=== PATIENT | female | born 1930 | race Caucasian/White ===

== ENCOUNTER → 2020-04-18 | Outpatient (CLI) | payer MEDICARE, MEDICAID ==
--- NOTE | 2020-04-20 13:08 | PATH ---
[address] [address] PATHOLOGY RPT PROCEDURE Name: DAPHNEHILDA Room: [facility] GUERDA Higgins#: [id number] Admission: 04/18/20 Date of : [birth year] Discharge: Report #: [id number] Path Case #: [id number] LCA Accession Number: [id number] . 01 Material submitted: . leg - BIOPSY TISSUE RIGHT LEG. Modifiers: right . 01 Clinical history: . Leg ulcer . 02 Diagnosis: Right leg biopsy: - Benign fibrovascular connective tissue with acute and chronic inflammation, scattered multinucleated foreign body type giant cells, fibrosis and stromal hemosiderin deposition typical of stasis dermatitis and predominantly inflammatory fibrinoid debris. (LINDSAY:birdie; 04/20/2020) QMS 04/20/2020 1051 Local . 02 Electronically signed: . Jorden Fraire MD, Pathologist NPI- [id number] . 01 Gross description: . The specimen is received in formalin, labeled "Daphne, Hilda, R leg biopsy" and consists of multiple fragments of pink-borja tissue material measuring 1.0 x 0.9 x 0.3 cm in aggregate which are entirely submitted in A1. (SDY; 04/19/2020) SYU/SYU 04/19/2020 1359 Local . 02 Pathologist provided ICD-10: L98.9, L90.5 . 02 CPT . 478592 Specimen Comment: A courtesy copy of this report has been sent to [phone] Specimen Comment: [phone] Specimen Comment: Report sent to / DR NGUYỄN Performed at: [address], [place] [id number] MD Jorje Huitron MD Phone: [phone] Performed at: [address] [address] [place], [place] [id number] MD Jorden Fraire MD Phone: [phone]
== END ==
LOC: M.WC 13:00
PROVIDERS: ATTEND Emergency Medicine Undersea and Hyperbaric Medicine
DX: I70.232 Atherosclerosis of native arteries of right leg with ulceration of calf (principal); L97.212 Non-pressure chronic ulcer of right calf with fat layer exposed; I89.0 Lymphedema, not elsewhere classified; I50.20 Unspecified systolic (congestive) heart failure; K21.9 Gastro-esophageal reflux disease without esophagitis; F41.9 Anxiety disorder, unspecified; Z95.0 Presence of cardiac pacemaker; Z79.82 Long term (current) use of aspirin

== ENCOUNTER 2020-05-01 17:29 | Inpatient (IN) | payer MEDICARE, MEDICAID ==
[~2020-05-01] VITALS: Ht 167.6 cm; Wt 61.1 kg
--- NOTE | ~2020-05-01 | PROC ---
[address] [address] PROCEDURE REPORT Name: DOMENICO PRASAD Room: [address] ADM IN M.R.#: [id number] Admission: 05/02/20 Attend Phys: Jimmie Collins MD Discharge: Date of : [birth year] Report #: [id number] THIS REPORT FOR: //name// cc: Jane Dukes Ahmad W. DO ~ THIS REPORT FOR: //name// For GI report, please see the Provation report in Perceptive 7 content. By: 0656Medical Records Staff ARUN /LAZARO
[2020-05-01 17:44] VITALS: BP 142/53
[2020-05-01] MEDS ORDERED: CRESTOR5 MG PO (18:04)
[2020-05-01] MEDS ORDERED: LISINOPRIL10 MG PO (18:04)
[2020-05-01] MEDS ORDERED: ASA81BEC PO (18:05)
[2020-05-01] MEDS ORDERED: DEMADEX20 MG PO (18:05)
[2020-05-01] MEDS ORDERED: SPIRONOLACTONE50 MG PO (18:06)
[2020-05-01] MEDS ORDERED: KLOR-CON 1010 MEQ PO (18:06)
[2020-05-01] MEDS ORDERED: UNICOMPLEX M TA1 TA1 PO (18:08)
[2020-05-01] MEDS ORDERED: NEURONTIN100 MG PO (18:08)
[2020-05-01] MEDS ORDERED: TEMAZEPAM30 MG PO (18:08)
[2020-05-01] MEDS ORDERED: VITAMIN D-40010 MCG PO (18:09)
[2020-05-01 18:16] LABS: BE -4.5 mmol/L (-2 to +3); PCO2 30.5 mmHg (35.0-45.0); PO2 94.2 mmHg (75.0-100.0); pH 7.412 (7.340-7.450)
[2020-05-01 18:29] LABS: URINE BILIRUBIN NEGATIVE (Negative); URINE BLOOD NEGATIVE (Negative); URINE CLARITY CLEAR; URINE COLOR YELLOW; URINE GLUCOSE-RANDOM NEGATIVE (Negative); URINE KETONES NEGATIVE (Negative); URINE LEUKOCYTES-REFLEX NEGATIVE (Negative); URINE NITRITE-REFLEX NEGATIVE (Negative); URINE PROTEIN NEGATIVE (Negative); URINE UROBILINOGEN 0.2 E.U./dl (0.2-1.0)
[2020-05-01 18:46] LABS: ABSOLUTE EOSINOPHILS 0.5 thou/uL (0.0-0.7); ABSOLUTE LYMPHOCYTES 1.7 thou/uL (0.8-5.3); ABSOLUTE MONOCYTES 0.6 thou/uL (0.0-1.2); ABSOLUTE NEUTROPHILS 3.7 thou/uL (1.6-8.1); BASOPHILS 0.6 %; EOSINOPHILS 7.7 %; HEMATOCRIT 37.2 % (37.0-47.0); HEMOGLOBIN 12.6 gm/dL (12.0-15.0); LYMPHOCYTES 25.8 %; MCH 32.8 pg (26.0-34.0); MCHC 33.9 g/dL (28.0-37.0); MCV 96.8 fL (80.0-100.0); MONOCYTES 8.6 %; MPV 10.2 fl. (7.2-11.1); NUCLEATED RBCS 0 /100WBC; PLATELET COUNT* 216 thou/uL (150-400); POLYS 57.3 %; RBC 3.84 mil/uL (4.20-5.00); RDW-CV 14.5 % (10.5-14.5); WBC 6.5 thou/uL (4.0-11.0)
[2020-05-01 19:06] LABS: CALCIUM 8.9 mg/dL (8.5-10.1); CREATININE 1.6 mg/dL (0.6-1.3); POTASSIUM 5.1 mmol/L (3.5-5.1)
[2020-05-01 19:11] LABS: ALBUMIN 3.4 g/dL (3.4-5.0); MAGNESIUM 2.2 mg/dL (1.8-2.4); TOTAL BILIRUBIN 0.5 mg/dL (<0.1-1.0); TOTAL PROTEIN 6.8 g/dL (6.4-8.2)
[2020-05-01 20:36] LABS: BE -3.1 mmol/L (-2 to +3); PCO2 VENOUS 43.2 mmHg (41.0-51.0); PO2 VENOUS 49.1 mmHg (35.0-45.0)
[2020-05-01 21:55] VITALS: BP 120/55
[2020-05-01 22:00] VITALS: BP 131/59
--- NOTE | 2020-05-02 04:50 | NUR ---
PATIENT ADMITTED TO UNIT AT 2200 BY ER IN STABLE CONDITION. ADMISSION ROUTINES IN PROGRESS. VITAL SIGNS STABLE. DRESSING RLE CLEAN AND DRY. DUE FOR CHANGE TODAY. PATIENT HAS INFLAMMATORY ARTHRITIS WITH EDEMA BOTH HANDS AND FEET. HEELS ELEVATED ON PILLOW. ORDERED MEDS AND FLUIDS PROVIDED ORDERED. NPO AT MIDNIGHT FOR GI CONSULT. NO STOOLS FROM ARRIVAL TO UNIT. SPECIAL ISOLATION FOR C. DIFF PENDING. HOURLY ROUNDS. REMAINS ALERT AND ORIENTED X 4. CONTINUE TO MONITOR.
[2020-05-02 08:43] VITALS: BP 120/65
--- NOTE | 2020-05-02 12:11 | NUR ---
CM spoke with Pt's DPOA, plan ARU at al. Cm updated occupational therapist rehab manager of pending referral. Dr to place consult. Therapies to be ordered.
[2020-05-02 16:00] VITALS: BP 126/67
--- NOTE | 2020-05-02 16:09 | EKG ---
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
--- NOTE | 2020-05-02 16:16 | NUR ---
PATIENT UP TO CHAIR WITH ASSISTANCE. EGD/COLON ORDERED FOR TOMORROW, NPO AFTER MIDNIGHT. GOLYTLEY PREP STARTED AT 1400 AND DUCOLAX GIVEN AT THIS TIME ORDERED. WOUND DRESSING CHANGED TO RIGHT CALF AND PHOTO OBTAINED PER ORDERS; WOUND CARE STILL TO SEE. IV SL PER CARDIOLOGY ORDERS. RECORDS OBTAINED AND CALLED TO Hector CORBIN NP. EKG RESULTS ALSO CALLED TO Mónica CORBIN NP.
--- NOTE | 2020-05-02 17:24 | NUR ---
CM COMPLETED INITIAL ASSESSMENT TO DISCUSS D/C PLANNING. PT LIVES IN [facility]. CM CONTACT CANDY THE ADMIN AND CONFIRM IT IS OKAY FOR PT TO RETURN TO FACILITY. PT HAS HX OF [facility] AND A SNF "IN [place] ABOUT THREE YEARS AGO." PT HAS W/C AND WALKER. PT HAS SUPPORTIVE NEICE. NO CHILDREN. PT RECEIVES ASSISTANCE W/ADLS AND MEALS AT [facility]. PT IS CURRENT W/[facility]. CM TO CONT TO FOLLOW PT.
[2020-05-02 21:15] VITALS: BP 143/65
--- NOTE | 2020-05-03 04:52 | NUR ---
PATIENT HAS REMAINED ALERT AND ORIENTED X 4 THROUGHOUT THE SHIFT AND RESTING QUIETLY ON HOURLY ROUNDS. BOWEL PREP FINISHED. BM'S NOW TRANSPARENT YELLOW. RIGHT AC IV INFILTRATED. NEW IV STARTED BY DATA GOVERNANCE ANALYST. NPO AT MIDNIGHT. VITAL SIGNS STABLE. CONTINUE TO MONITOR.
[2020-05-03 06:23] LABS: ABSOLUTE EOSINOPHILS 0.4 thou/uL (0.0-0.7); ABSOLUTE LYMPHOCYTES 1.8 thou/uL (0.8-5.3); ABSOLUTE MONOCYTES 0.6 thou/uL (0.0-1.2); ABSOLUTE NEUTROPHILS 3.4 thou/uL (1.6-8.1); BASOPHILS 0.7 %; EOSINOPHILS 6.2 %; HEMATOCRIT 35.5 % (37.0-47.0); HEMOGLOBIN 12.2 gm/dL (12.0-15.0); LYMPHOCYTES 28.3 %; MCH 33.1 pg (26.0-34.0); MCHC 34.2 g/dL (28.0-37.0); MCV 96.6 fL (80.0-100.0); MONOCYTES 9.7 %; MPV 10.7 fl. (7.2-11.1); NUCLEATED RBCS 0 /100WBC; PLATELET COUNT* 204 thou/uL (150-400); POLYS 55.1 %; RBC 3.67 mil/uL (4.20-5.00); RDW-CV 14.3 % (10.5-14.5); WBC 6.3 thou/uL (4.0-11.0)
[2020-05-03 06:34] LABS: CALCIUM 8.6 mg/dL (8.5-10.1); CREATININE 1.2 mg/dL (0.6-1.3); POTASSIUM 3.9 mmol/L (3.5-5.1)
[2020-05-03 08:05] VITALS: BP 169/49
[2020-05-03 16:00] VITALS: BP 122/58
--- NOTE | 2020-05-03 18:35 | NUR ---
PT A&OX4, VSS. PT NPO THIS AM PRIOR TO EGD/COLONOSCOPY. PT REMAINS ON PRECAUTIONS AWAITING C-DIFF RESULTS. PO VANC ADMINISTERED A DIRECTED. IV TO LFA SALINE LOCKED. NO REDNESS/SWELLING NOTED AT SITE. EDEMA NOTED TO BLE UPON ASSUMING CARE THIS AM. PT UP TO BSC W/WALKER. GAIT SLOW BUT STEADY. WOUND NOTED TO LATERAL ASPECT OF RLE. PT TO BE ENOURAGED TO WEAR BOOT TO PROTECT RLE AT TIMES OF REST. PT REQUESTS TEMAZAPAM TO BE SCHEDULED VS. PRN. PHYSICIAN PAGED. PT ON ROOM AIR, 100% SAT. PT LEFT UNIT APPROX 1130 AND RETURNED 1530. PT DIET ADVANCED TO HEART HEALTHY. PT DECLINED TRAY AND FAMILY PROVIDED FOOD FROM HOME REQUESTED BY PT. NURSING STAFF OFFERED PT SHOWER THIS AFTERNOON FOLLOWING PROCEDURE. PT DECLINED STATING SHE WAS WAITING FOR FAMILY TO BRING FOOD. REHAB TO BE CONSULTED FOR THIS PT. PT RESTS IN BED AT THIS TIME WITH CALL LIGHT IN REACH. WILL CONTINUE TO MONITOR.
[2020-05-03 21:00] VITALS: BP 103/60
[2020-05-04 06:13] LABS: ABSOLUTE EOSINOPHILS 0.2 thou/uL (0.0-0.7); ABSOLUTE LYMPHOCYTES 1.8 thou/uL (0.8-5.3); ABSOLUTE MONOCYTES 0.5 thou/uL (0.0-1.2); ABSOLUTE NEUTROPHILS 4.2 thou/uL (1.6-8.1); BASOPHILS 0.6 %; EOSINOPHILS 2.9 %; HEMATOCRIT 33.1 % (37.0-47.0); HEMOGLOBIN 11.4 gm/dL (12.0-15.0); LYMPHOCYTES 26.8 %; MCH 33.2 pg (26.0-34.0); MCHC 34.3 g/dL (28.0-37.0); MCV 96.6 fL (80.0-100.0); MPV 10.9 fl. (7.2-11.1); NUCLEATED RBCS 0 /100WBC; PLATELET COUNT* 188 thou/uL (150-400); POLYS 61.7 %; RBC 3.42 mil/uL (4.20-5.00); RDW-CV 14.4 % (10.5-14.5); WBC 6.7 thou/uL (4.0-11.0)
--- NOTE | 2020-05-04 06:27 | NUR ---
Alert and oriented x 4. She is up with mostly stand by assist to the bedside commode with walker. She did get temazepam at bedtime. Dressing to rt lower extremity in place with prafo boot in place. She has slept well.
[2020-05-04 06:32] LABS: ALBUMIN 2.7 g/dL (3.4-5.0); CALCIUM 8.2 mg/dL (8.5-10.1); CREATININE 1.3 mg/dL (0.6-1.3); POTASSIUM 3.8 mmol/L (3.5-5.1); TOTAL BILIRUBIN 0.6 mg/dL (<0.1-1.0); TOTAL PROTEIN 5.8 g/dL (6.4-8.2)
[2020-05-04 08:17] VITALS: BP 93/62
[2020-05-04 16:00] VITALS: BP 111/52
--- NOTE | 2020-05-04 16:13 | NUR ---
WOUND NURSE: PATIENT SEEN TO ADDRESS WOUND ON THE RIGHT LOWER LEG WHICH SEEMS ATYPICAL MEASURING 0.5 X 0.5 X 0.5 CM. BASE OF WOUND BED NOT OBSERVED AT TIME OF THIS ASSESSMENT BUT SUSPECT THIS WOUND MAY REACH UNDERLYING FASCIA. THERE IS NOT PERIWOUND REDNESS, WARMTH, OR INDURATION. THERE IS A SMALL AMOUNT OF SEROUSANGUINOUS DRAINAGE. PATIENT IS SEEN REGULARY BY DR. CLEARY IN [facility] AND WILL NEED FOLLOW UP APPT UPON DISCHRGE FROM HOSP. CLEANSED WITH WOUND CLEANSER, RINSED WITH SALINE, THEN PACKED WITH PURACHOL PLUS AG THEN COVERED WITH BORDERED FOAM DRESSING. APPLIED SINGLE LAYER SIZE E TUBIGRIP TO BLE TOES TO KNEE. PATIENT INSTRUCTED ON NEED FOR PROTEIN SUPPLEMENT AND TO INCREASE HER NUTRITIONAL INTAKE.
--- NOTE | 2020-05-04 17:05 | NUR ---
PATIENT HAD A GOOD DAY TODAY. SHE GOT UP TO THE SHOWER AND HAD HER HAIR WASHED AND LINENS CHANGED. SHE HAS NAPPED IN BED AND IS UP IN THE CHAIR NOW EATING SUPPER. NO COMPLAINTS OF PAIN TODAY BUT IS ABLE TO MAKE HER NEEDS KNOWN. CALL LIGHT IS IN EASY REACH. TAKES MEDICATIONS WHOLE WITHOUT DIFFICULTY. FEEDS HERSELF. NEEDS STAND BY ASSIST IF AMBULATING WITH HER WALKER..
[2020-05-04 21:02] VITALS: BP 112/55
--- NOTE | 2020-05-05 06:42 | NUR ---
PT A&OX4, ON ROOM AIR, PT UP WITH SB ASSIST, VSS. PT SLEEPING WELL. HOURLY ROUNDINGS COMPLETE. WILL CONTINUE TO MONITOR.
[2020-05-05 08:20] VITALS: BP 107/49
--- NOTE | 2020-05-05 11:23 | CON ---
[address] [address] CONSULTATION Name: SHANICEDOMENICO Room: [address] ADM IN M.R.#: [id number] Admission: 05/02/20 Attend Phys: Jimmie Collins MD Discharge: Date of : [birth year] Report #: [id number] THIS REPORT FOR: //name// cc: Jane Dukes Ahmad W. DO ~ THIS REPORT FOR: //name// CC: Jane Bass DICTATED BY: Geri Mckeon [facility] DATE OF SERVICE: 05/02/2020 Please note at the time of this dictation, the patient was seen and physically examined by myself. REASON FOR CONSULTATION: Diarrhea. HISTORY OF PRESENT ILLNESS: This is a 89-year-old female who was brought to the Emergency Room with increased weakness, change in bowel habits over the last several months and ongoing as she describes diarrhea that she can get off the toilet for. The patient states she has lost a little bit of weight and has not had much of an appetite. The patient was recently moved here from [place] to be closer to family since her sister recently passed earlier this summer. The patient states she has had colonoscopies done in the past; one of her first when she had, she had polyps. She has not had any more since then when her last one was done up in [place] many years ago. She states prior to change in her bowel habits, she states her bowels were soft and formed and they go once or twice a day. On occasion, she has noted some bright red blood with all this sitting on the toilet. She states she has no straining, but it just keeps coming out. She states she just feels like she cannot never get clean with wiping because that it is just so soft. ALLERGIES: PENICILLIN, SULFA AND CAMPHOR. MEDICATIONS: From home include Crestor, Zestril, Demadex, Klor-Con, spironolactone, multivitamin, temazepam, Neurontin, and vitamin D. PAST MEDICAL HISTORY: Hypertension, Geafaxr-Uqnpa-Allyh disease, mild chronic kidney disease, hyperlipidemia, peripheral vascular disease. PAST SURGICAL HISTORY: Pacemaker. FAMILY HISTORY: [place] [address] [facility] Room: [address] IN [facility].#: [id number] Admission: 05/02/20 Attend Phys: Jimmie Collins MD Discharge: Date of : [birth year] Report #: [id number] SOCIAL HISTORY: Denies any alcohol, tobacco or illegal drug use. REVIEW OF SYSTEMS: Twelve-point review of systems is essentially negative except what is mentioned in the HPI. PHYSICAL EXAMINATION: VITAL SIGNS: Temperature 36.1, pulse 73, respirations 18, blood pressure 131/59. HEART: Regular rate and rhythm. LUNGS: Clear. ABDOMEN: Soft, positive bowel sounds in all 4 quadrants with no masses or tenderness noted. LABORATORY DATA: Hemoglobin 12.6, white count 6.5, platelets 216. BUN is 47, creatinine 1.6. GFR is 30. LFTs are completely normal. Chest x-ray was normal. IMPRESSION: 1. Diarrhea. 2. History of colon polyps. 3. Change in bowel habits over the last several months. 4. Family history of breast cancer. PLAN: 1. Colonoscopy tomorrow with Dr. Ramos. 2. Clear liquids today, n.p.o. after midnight. 3. We will obtain a Cardiology consult given her history of a pacemaker for clearance for procedure tomorrow. 4. Further recommendations to be made after Dr. Ramos who sees the patient later today. Thank you for allowing us to participate in this patient's care. Please do not hesitate to call with any questions in regard to this consult. Agree with above assessment and plan by Geri Mckeon. <ELECTRONICALLY SIGNED> By: Fran Ramos MD 05/05/20 1123 0945 1019Fran Ramos MD /nt
[2020-05-05] MEDS ORDERED: COLESTID1 GM PO (11:40)
[2020-05-05] MEDS ORDERED: BENTYL 20 MG TA20 M1 PO (11:40)
[2020-05-05] MEDS ORDERED: FLAGYL500 M1 PO (11:40)
[2020-05-05 13:31] VITALS: BP 107/49
--- NOTE | 2020-05-05 16:24 | NUR ---
PATIENT DISCHARGED TO INPATIENT REHAB. REPORT GIVEN TO LAMIN LAWSON. BELONGINGS PACKED AND TRANSPORTED TO ROOM 333. PATIENT TAKEN BY WHEELCHAIR TO ROOM 333. IV REMOVED.
== END 2020-05-05 16:15 | DRG 371 ==
LOC: M.ERS 17:29 → M.TBA-ER 18:33 → M.ORTHSURG 18:33
PROVIDERS: Emergency Medicine; Personal Emergency Response Attendant; ADMIT Internal Medicine; ATTEND Internal Medicine
PROC: 0DB68ZX Excision of Stomach, Via Natural or Artificial Opening Endoscopic, Diagnostic (ICD-10-PCS; principal; 2020-05-03)
PROC: 0D758ZZ Dilation of Esophagus, Via Natural or Artificial Opening Endoscopic (ICD-10-PCS; principal; 2020-05-03)
PROC: 0DBK8ZZ Excision of Ascending Colon, Via Natural or Artificial Opening Endoscopic (ICD-10-PCS; principal; 2020-05-03)
PROC: 0DBL8ZZ Excision of Transverse Colon, Via Natural or Artificial Opening Endoscopic (ICD-10-PCS; principal; 2020-05-03)
PROC: 0DBE8ZX Excision of Large Intestine, Via Natural or Artificial Opening Endoscopic, Diagnostic (ICD-10-PCS; principal; 2020-05-03)
DX: A04.9 Bacterial intestinal infection, unspecified (principal); N17.0 Acute kidney failure with tubular necrosis; I42.8 Other cardiomyopathies; E44.0 Moderate protein-calorie malnutrition; I13.0 Hypertensive heart and chronic kidney disease with heart failure and stage 1 through stage 4 chronic kidney disease, or unspecified chronic kidney disease; K29.70 Gastritis, unspecified, without bleeding; K57.30 Diverticulosis of large intestine without perforation or abscess without bleeding; N18.9 Chronic kidney disease, unspecified; E78.5 Hyperlipidemia, unspecified; E11.51 Type 2 diabetes mellitus with diabetic peripheral angiopathy without gangrene; M19.042 Primary osteoarthritis, left hand; M19.041 Primary osteoarthritis, right hand; K52.9 Noninfective gastroenteritis and colitis, unspecified; I50.9 Heart failure, unspecified; E86.0 Dehydration; E11.22 Type 2 diabetes mellitus with diabetic chronic kidney disease; I48.91 Unspecified atrial fibrillation; K22.2 Esophageal obstruction; K44.9 Diaphragmatic hernia without obstruction or gangrene; Z20.828 Contact with and (suspected) exposure to other viral communicable diseases; Z95.0 Presence of cardiac pacemaker; Z88.0 Allergy status to penicillin; Z88.2 Allergy status to sulfonamides; Z88.8 Allergy status to other drugs, medicaments and biological substances; Z80.3 Family history of malignant neoplasm of breast; Z86.010 Personal history of colon polyps; Z68.21 Body mass index [BMI] 21.0-21.9, adult; Z79.899 Other long term (current) drug therapy

== ENCOUNTER 2020-05-05 13:44 | Inpatient (IN) | payer MEDICARE, MEDICAID ==
[~2020-05-05] VITALS: Ht 167.6 cm; Wt 59.0 kg
[~2020-05-05 13:44] MED LIST: ASA81BEC PO; BENTYL 20 MG TA20 M1 PO; COLESTID1 GM PO; CRESTOR5 MG PO; DEMADEX20 MG PO; FLAGYL500 M1 PO; KLOR-CON 1010 MEQ PO; LISINOPRIL10 MG PO; NEURONTIN100 MG PO; SPIRONOLACTONE50 MG PO; TEMAZEPAM30 MG PO; UNICOMPLEX M TA1 TA1 PO; VITAMIN D-40010 MCG PO
[2020-05-05 20:15] VITALS: BP 111/59
[2020-05-06 08:30] VITALS: BP 128/62
[2020-05-06 09:11] LABS: ABSOLUTE EOSINOPHILS 0.4 thou/uL (0.0-0.7); ABSOLUTE MONOCYTES 0.6 thou/uL (0.0-1.2); ABSOLUTE NEUTROPHILS 4.5 thou/uL (1.6-8.1); BASOPHILS 0.6 %; HEMATOCRIT 37.6 % (37.0-47.0); HEMOGLOBIN 12.9 gm/dL (12.0-15.0); LYMPHOCYTES 26.3 %; MCH 32.6 pg (26.0-34.0); MCHC 34.3 g/dL (28.0-37.0); MCV 95.1 fL (80.0-100.0); MPV 10.1 fl. (7.2-11.1); NUCLEATED RBCS 0 /100WBC; PLATELET COUNT* 205 thou/uL (150-400); POLYS 60.1 %; RBC 3.96 mil/uL (4.20-5.00); RDW-CV 14.5 % (10.5-14.5); WBC 7.4 thou/uL (4.0-11.0)
[2020-05-06 09:21] LABS: CALCIUM 9.2 mg/dL (8.5-10.1); CREATININE 1.4 mg/dL (0.6-1.3); POTASSIUM 3.8 mmol/L (3.5-5.1)
[2020-05-06 20:00] VITALS: BP 112/59
[2020-05-07 08:00] VITALS: BP 131/50
[2020-05-07 21:00] VITALS: BP 99/48
[2020-05-08 07:30] VITALS: BP 124/52
[2020-05-08 20:00] VITALS: BP 107/44
[2020-05-09 08:00] VITALS: BP 128/52
[2020-05-09 19:00] VITALS: BP 107/50
[2020-05-10 04:39] LABS: CALCIUM 8.4 mg/dL (8.5-10.1); CREATININE 1.5 mg/dL (0.6-1.3); POTASSIUM 4.6 mmol/L (3.5-5.1)
[2020-05-10 07:00] VITALS: BP 124/53
[2020-05-10 20:00] VITALS: BP 98/42
[2020-05-11 08:17] VITALS: BP 107/54
[2020-05-11 20:25] VITALS: BP 121/52
[2020-05-11 20:30] VITALS: BP 104/59
[2020-05-12 08:02] VITALS: BP 114/47
[2020-05-12 20:00] VITALS: BP 104/59
[2020-05-13 05:56] VITALS: BP 118/59
[2020-05-13 08:00] VITALS: BP 127/63
[2020-05-13 20:26] VITALS: BP 121/55
[2020-05-14 08:00] VITALS: BP 122/59
[2020-05-14 19:00] VITALS: BP 104/47
[2020-05-15 07:00] VITALS: BP 129/61
[2020-05-15 20:00] VITALS: BP 104/66
[2020-05-16 08:49] VITALS: BP 139/70
[2020-05-16 19:00] VITALS: BP 98/46
[2020-05-17 08:48] VITALS: BP 126/62
[2020-05-17 20:29] VITALS: BP 115/49
[2020-05-18 08:00] VITALS: BP 133/54
[2020-05-18] MEDS ORDERED: BUDESONIDE EC3 MG PO ×2 (09:13→09:16)
[2020-05-18] MEDS ORDERED: ALTACE5 MG PO (09:13)
[2020-05-18] MEDS ORDERED: COLESTID1 GM PO (09:13)
[2020-05-18] MEDS ORDERED: BENTYL 20 MG TA20 M1 PO ×2 (09:13→09:16)
[2020-05-18 16:08] VITALS: BP 133/54
[2020-05-18 20:30] VITALS: BP 111/50
[2020-05-19 07:00] VITALS: BP 122/59
[2020-05-19 11:45] VITALS: BP 133/54
[2020-05-19 12:31] VITALS: BP 133/54
[2020-05-19 16:06] VITALS: BP 133/54
== END 2020-05-19 16:05 | disposition home health service (06) | DRG 948 ==
LOC: M.REH 13:44
PROVIDERS: Internal Medicine; ADMIT Physical Medicine & Rehabilitation; ATTEND Physical Medicine & Rehabilitation
DX: R53.81 Other malaise (principal); I48.91 Unspecified atrial fibrillation; K52.9 Noninfective gastroenteritis and colitis, unspecified; G60.0 Hereditary motor and sensory neuropathy; I12.9 Hypertensive chronic kidney disease with stage 1 through stage 4 chronic kidney disease, or unspecified chronic kidney disease; N18.3 Chronic kidney disease, stage 3 (moderate); K52.831 Collagenous colitis; Z88.0 Allergy status to penicillin; Z88.2 Allergy status to sulfonamides; Z95.810 Presence of automatic (implantable) cardiac defibrillator; Z86.718 Personal history of other venous thrombosis and embolism; Z79.899 Other long term (current) drug therapy

== ENCOUNTER → 2020-05-30 | Outpatient (CLI) | payer MEDICARE, MEDICAID ==
[~2020-05-30] MED LIST changes: +ALTACE5 MG PO; +BUDESONIDE EC3 MG PO
== END ==
LOC: M.WC 04:07
PROVIDERS: ATTEND Emergency Medicine Undersea and Hyperbaric Medicine
DX: I70.232 Atherosclerosis of native arteries of right leg with ulceration of calf (principal); L97.212 Non-pressure chronic ulcer of right calf with fat layer exposed; S80.11XA Contusion of right lower leg, initial encounter; I89.0 Lymphedema, not elsewhere classified; I50.20 Unspecified systolic (congestive) heart failure; K21.9 Gastro-esophageal reflux disease without esophagitis; F41.9 Anxiety disorder, unspecified; Z95.0 Presence of cardiac pacemaker; X58.XXXA Exposure to other specified factors, initial encounter; Y93.89 Activity, other specified; Y92.89 Other specified places as the place of occurrence of the external cause; Y99.8 Other external cause status

== ENCOUNTER 2020-06-02 08:00 | Inpatient (IN) | payer MEDICARE, MEDICAID ==
[~2020-06-02] VITALS: Ht 167.6 cm; Wt 55.8 kg
[2020-06-02 08:03] VITALS: BP 126/76
[2020-06-02 08:32] LABS: ABSOLUTE EOSINOPHILS 0.1 thou/uL (0.0-0.7); ABSOLUTE LYMPHOCYTES 1.7 thou/uL (0.8-5.3); ABSOLUTE MONOCYTES 0.7 thou/uL (0.0-1.2); ABSOLUTE NEUTROPHILS 7.6 thou/uL (1.6-8.1); BASOPHILS 0.4 %; EOSINOPHILS 1.2 %; HEMOGLOBIN 12.6 gm/dL (12.0-15.0); LYMPHOCYTES 16.5 %; MCH 33.3 pg (26.0-34.0); MCV 97.9 fL (80.0-100.0); MONOCYTES 7.3 %; MPV 9.6 fl. (7.2-11.1); NUCLEATED RBCS 0 /100WBC; PLATELET COUNT* 208 thou/uL (150-400); POLYS 74.6 %; RBC 3.78 mil/uL (4.20-5.00); RDW-CV 15.5 % (10.5-14.5); WBC 10.2 thou/uL (4.0-11.0)
[2020-06-02 08:40] LABS: CALCIUM 8.6 mg/dL (8.5-10.1); CREATININE 1.6 mg/dL (0.6-1.3); POTASSIUM 4.7 mmol/L (3.5-5.1)
[2020-06-02 08:41] LABS: APTT 22.1 Seconds (25.0-31.3); PROTIME 10.6 Seconds (9.20-11.50)
[2020-06-02 08:52] LABS: ALBUMIN 3.4 g/dL (3.4-5.0); TOTAL BILIRUBIN 0.6 mg/dL (<0.1-1.0); TOTAL PROTEIN 6.8 g/dL (6.4-8.2)
[2020-06-02 09:38] LABS: URINE BILIRUBIN NEGATIVE (Negative); URINE BLOOD NEGATIVE (Negative); URINE CLARITY CLEAR; URINE COLOR YELLOW; URINE GLUCOSE-RANDOM NEGATIVE (Negative); URINE KETONES NEGATIVE (Negative); URINE LEUKOCYTES-REFLEX NEGATIVE (Negative); URINE NITRITE-REFLEX NEGATIVE (Negative); URINE PROTEIN NEGATIVE (Negative); URINE UROBILINOGEN 0.2 E.U./dl (0.2-1.0)
--- NOTE | 2020-06-02 10:33 | EKG ---
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[employer]: [facility] : 1930 Requested By: Arcenio Ray Order Number: [id number] MD: Steve Reyna Measurements Intervals [place] Rate: 70 P: 0 LA: 36 QRS: 251 QRSD: 108 T: 77 QT: 414 QTc: 447 Interpretive Statements Ventricular-paced rhythm No further analysis attempted due to paced rhythm Compared to ECG 05/02/2020 14:20:03 No significant change Electronically Signed On 06-02-2020 10:33:20 CDT by Steve Reyna [email or web address] <ELECTRONICALLY SIGNED> By: Steve Reyna MD, [facility] 06/02/20 1033 2 2 Steve Reyna MD, [facility] /EPI
[2020-06-02 11:38] VITALS: BP 130/64
[2020-06-02 12:00] VITALS: BP 150/75
[2020-06-02 16:00] VITALS: BP 90/42
[2020-06-03 04:46] LABS: ABSOLUTE EOSINOPHILS 0.1 thou/uL (0.0-0.7); ABSOLUTE LYMPHOCYTES 1.4 thou/uL (0.8-5.3); ABSOLUTE MONOCYTES 0.5 thou/uL (0.0-1.2); ABSOLUTE NEUTROPHILS 4.9 thou/uL (1.6-8.1); BASOPHILS 0.7 %; EOSINOPHILS 1.5 %; HEMATOCRIT 32.6 % (37.0-47.0); HEMOGLOBIN 11.2 gm/dL (12.0-15.0); LYMPHOCYTES 19.7 %; MCH 33.8 pg (26.0-34.0); MCHC 34.4 g/dL (28.0-37.0); MCV 98.3 fL (80.0-100.0); MONOCYTES 7.8 %; MPV 9.6 fl. (7.2-11.1); NUCLEATED RBCS 0 /100WBC; PLATELET COUNT* 165 thou/uL (150-400); POLYS 70.3 %; RBC 3.31 mil/uL (4.20-5.00); RDW-CV 15.1 % (10.5-14.5); WBC 6.9 thou/uL (4.0-11.0)
[2020-06-03 05:52] LABS: CREATININE 1.3 mg/dL (0.6-1.3); POTASSIUM 5.6 mmol/L (3.5-5.1)
[2020-06-03 07:40] VITALS: BP 110/46
[2020-06-03 19:50] VITALS: BP 114/61
[2020-06-04 04:31] LABS: ABSOLUTE EOSINOPHILS 0.2 thou/uL (0.0-0.7); ABSOLUTE LYMPHOCYTES 2.3 thou/uL (0.8-5.3); ABSOLUTE MONOCYTES 0.7 thou/uL (0.0-1.2); ABSOLUTE NEUTROPHILS 5.7 thou/uL (1.6-8.1); BASOPHILS 0.3 %; EOSINOPHILS 1.7 %; HEMATOCRIT 37.9 % (37.0-47.0); HEMOGLOBIN 12.9 gm/dL (12.0-15.0); LYMPHOCYTES 25.5 %; MCH 33.4 pg (26.0-34.0); MCHC 33.9 g/dL (28.0-37.0); MCV 98.5 fL (80.0-100.0); MONOCYTES 8.1 %; MPV 10.2 fl. (7.2-11.1); NUCLEATED RBCS 0 /100WBC; PLATELET COUNT* 205 thou/uL (150-400); POLYS 64.4 %; RBC 3.85 mil/uL (4.20-5.00); RDW-CV 15.6 % (10.5-14.5); WBC 8.9 thou/uL (4.0-11.0)
[2020-06-04 04:45] LABS: ALBUMIN 3.1 g/dL (3.4-5.0); CALCIUM 8.4 mg/dL (8.5-10.1); CREATININE 1.3 mg/dL (0.6-1.3); POTASSIUM 4.7 mmol/L (3.5-5.1); TOTAL BILIRUBIN 0.4 mg/dL (<0.1-1.0); TOTAL PROTEIN 6.3 g/dL (6.4-8.2)
[2020-06-04 07:30] VITALS: BP 145/67
[2020-06-04 14:00] VITALS: BP 131/59
[2020-06-05] MEDS ORDERED: SPIRONOLACTONE50 MG PO (11:04)
[2020-06-05] MEDS ORDERED: COLESTID1 GM PO (11:04)
[2020-06-05] MEDS ORDERED: BENTYL 20 MG TA20 M1 PO (11:04)
[2020-06-05] MEDS ORDERED: TRAMADOL 50 MG50 MG PO (11:11)
[2020-06-05] MEDS ORDERED: LORCET 5-325 M1 EACH PO (11:11)
[2020-06-05] MEDS ORDERED: LIDODERM1 EACH TOP (11:11)
[2020-06-05 16:00] VITALS: BP 117/58
--- NOTE | 2020-06-05 16:04 | 2DMMODE ---
[place] [address] 2 D/M-MODE ECHOCARDIOGRAM Name: TROY PRASADTA Room: [address] IN .R.#: [id number] Admission: 06/02/20 Attend Phys: Oren Gonsalez Discharge: Date of : [birth year] Date of Service: 06/05/20 1604 Report #: [id number] THIS REPORT FOR: cc: Jane Dukes,Jane Laura,Steve Vides MD [facility] ~ APPROVED REPORT Study performed: 06/05/2020 15:00:10 EXAM: Comprehensive 2D, Doppler, and color-flow Echocardiogram Patient Location: In-Patient Room #: [facility] Status: routine BSA: 1.67 HR: 91 bpm BP: 124/67 mmHg Rhythm: NSR Other Information Study Quality: Good Indications Congestive Heart Failure 2D Dimensions IVSd: 10.58 (7-11mm) LVOT Diam: 16.96 (18-24mm) LVDd: 49.72 mm PWd: 8.97 (7-11mm) Ascending Ao: 30.04 (22-36mm) LVDs: 28.27 (25-40mm) Aortic Root: 28.07 mm Volumes Left Atrial Volume (Systole) LA ESV Index: 62.40 mL/m2 Aortic Valve AoV Peak Sundar.: 2.66 m/s AO Peak Gr.: 28.40 mmHg LVOT Max P.43 mmHg AO Mean Gr.: 15.13 mmHg LVOT Mean P.35 mmHg LVOT Max V: 1.36 m/s AO V2 VTI: 45.76 cm LVOT Mean V: 0.82 m/s ROSALES (VTI): 1.22 cm2 LVOT V1 VTI: 24.70 cm AI Crenshaw: 1.99 m/s2 [place] [address] 2 D/M-MODE ECHOCARDIOGRAM Name: DOMENICO PRASAD Room: [address] IN M.R.#: [id number] Admission: 06/02/20 Attend Phys: Oren Gonsalez Discharge: Date of : [birth year] Date of Service: 06/05/20 1604 Report #: [id number] AI PHT: 570.11 ms Mitral Valve MV Decel. Time: 228.49 ms MV PHT: 66.26 ms MVA (PHT): 3.32 cm2 TDI Medial E' Sundar.: 0.10 m/s Lateral E' Sundar.: 0.13 m/s Pulmonary Valve PV Peak Sundar.: 0.88 m/s PV Peak Gr.: 3.13 mmHg Tricuspid Valve RAP Estimate: 5.00 mmHg TR Peak Gr.: 21.19 mmHg RVSP: 26.00 mmHg PA Pressure: 26.00 mmHg Left Ventricle The left ventricle is normal size. There is normal LV segmental wall motion. There is normal left ventricular wall thickness. Left ventricular systolic function is normal. The left ventricular ejection fraction is within the normal range. LVEF is 55%. This study is not technically sufficient to allow evaluation of the LV diastolic function due to atrial fibrillation. Right Ventricle The right ventricle is normal size. The right ventricular systolic function is normal. Pacemaker lead is present in the right ventricle. Atria Left atrium is moderately dilated. The right atrium size is normal. Aortic Valve Moderate aortic valve sclerosis. Mild aortic regurgitation. Mild to moderate aortic stenosis. Mitral Valve The mitral valve is normal in structure. Mild mitral regurgitation. No evidence of mitral valve stenosis. Tricuspid Valve The tricuspid valve is normal in structure. Mild tricuspid regurgitation. [place] [address] 2 D/M-MODE ECHOCARDIOGRAM Name: DOMENICO PRASAD Room: [address] IN [facility]#: [id number] Admission: 06/02/20 Attend Phys: Oren Gonsalez Discharge: Date of : [birth year] Date of Service: 06/05/20 1604 Report #: [id number] Pulmonic Valve The pulmonary valve is normal in structure. There is no pulmonic valvular regurgitation. Great Vessels The aortic root is normal in size. IVC is normal in size and collapses >50% with inspiration. Pericardium There is no pericardial effusion. <Conclusion> The left ventricle is normal size. There is normal left ventricular wall thickness. LVEF is 55%. This study is not technically sufficient to allow evaluation of the LV diastolic function due to atrial fibrillation. The right ventricle is normal size. Left atrium is moderately dilated. The right atrium size is normal. Moderate aortic valve sclerosis. Mild aortic regurgitation. Mild to moderate aortic stenosis. The mitral valve is normal in structure. No evidence of mitral valve stenosis. The tricuspid valve is normal in structure. Mild tricuspid regurgitation. No pulmonary hypertension. IVC is normal in size and collapses >50% with inspiration. There is no pericardial effusion. <ELECTRONICALLY SIGNED> By: Steve Reyna MD, FACC 06/05/20 1604 1604 1604 Steve Reyna MD, FACC /INF
[2020-06-05 20:16] VITALS: BP 107/52
[2020-06-06 04:09] LABS: ABSOLUTE EOSINOPHILS 0.2 thou/uL (0.0-0.7); ABSOLUTE MONOCYTES 0.7 thou/uL (0.0-1.2); ABSOLUTE NEUTROPHILS 4.5 thou/uL (1.6-8.1); BASOPHILS 0.3 %; EOSINOPHILS 2.3 %; HEMATOCRIT 32.7 % (37.0-47.0); HEMOGLOBIN 11.3 gm/dL (12.0-15.0); LYMPHOCYTES 26.8 %; MCH 33.7 pg (26.0-34.0); MCHC 34.6 g/dL (28.0-37.0); MCV 97.5 fL (80.0-100.0); MONOCYTES 9.8 %; MPV 9.7 fl. (7.2-11.1); NUCLEATED RBCS 0 /100WBC; PLATELET COUNT* 199 thou/uL (150-400); POLYS 60.8 %; RBC 3.36 mil/uL (4.20-5.00); WBC 7.4 thou/uL (4.0-11.0)
[2020-06-06 04:16] LABS: CALCIUM 8.6 mg/dL (8.5-10.1); CREATININE 1.4 mg/dL (0.6-1.3); POTASSIUM 4.6 mmol/L (3.5-5.1)
[2020-06-06 07:50] VITALS: BP 138/67
[2020-06-06 12:00] VITALS: BP 138/67
[2020-06-06] MEDS ORDERED: KLOR-CON 1010 MEQ PO (13:50)
== END 2020-06-06 14:01 | DRG 183 ==
LOC: M.ERS 08:00 → M.TBA-ER 10:25 → M.3W 10:25
PROVIDERS: Family Medicine; Internal Medicine; ADMIT Internal Medicine; ATTEND Internal Medicine
DX: S22.42XA Multiple fractures of ribs, left side, initial encounter for closed fracture (principal); N17.0 Acute kidney failure with tubular necrosis; I50.42 Chronic combined systolic (congestive) and diastolic (congestive) heart failure; I13.0 Hypertensive heart and chronic kidney disease with heart failure and stage 1 through stage 4 chronic kidney disease, or unspecified chronic kidney disease; K52.831 Collagenous colitis; E87.5 Hyperkalemia; G60.0 Hereditary motor and sensory neuropathy; E86.0 Dehydration; R53.1 Weakness; R53.81 Other malaise; E78.5 Hyperlipidemia, unspecified; G47.00 Insomnia, unspecified; E55.9 Vitamin D deficiency, unspecified; G62.9 Polyneuropathy, unspecified; G25.81 Restless legs syndrome; W19.XXXA Unspecified fall, initial encounter; I48.91 Unspecified atrial fibrillation; N18.9 Chronic kidney disease, unspecified; Z20.828 Contact with and (suspected) exposure to other viral communicable diseases; Y93.89 Activity, other specified; Y99.8 Other external cause status; Y92.89 Other specified places as the place of occurrence of the external cause; Z79.82 Long term (current) use of aspirin; Z79.899 Other long term (current) drug therapy; Z91.048 Other nonmedicinal substance allergy status; Z88.2 Allergy status to sulfonamides; Z88.0 Allergy status to penicillin; Z86.718 Personal history of other venous thrombosis and embolism; Z95.810 Presence of automatic (implantable) cardiac defibrillator

== ENCOUNTER 2020-06-06 12:01 | Inpatient (IN) | payer MEDICARE, MEDICAID ==
[~2020-06-06] VITALS: Ht 167.6 cm; Wt 61.2 kg
[~2020-06-06 12:01] MED LIST changes: +LIDODERM1 EACH TOP; +LORCET 5-325 M1 EACH PO; +TRAMADOL 50 MG50 MG PO
[2020-06-06] MEDS ORDERED: KLOR-CON 1010 MEQ PO (13:50)
[2020-06-06 14:32] VITALS: BP 103/41
[2020-06-06 19:00] VITALS: BP 107/41
[2020-06-07 04:04] LABS: HEMATOCRIT 32.9 % (37.0-47.0); HEMOGLOBIN 11.3 gm/dL (12.0-15.0); MCH 33.6 pg (26.0-34.0); MCHC 34.5 g/dL (28.0-37.0); MCV 97.3 fL (80.0-100.0); MPV 9.5 fl. (7.2-11.1); RBC 3.38 mil/uL (4.20-5.00); RDW-CV 15.1 % (10.5-14.5); WBC 6.6 thou/uL (4.0-11.0)
[2020-06-07 04:30] LABS: CALCIUM 8.5 mg/dL (8.5-10.1); CREATININE 1.2 mg/dL (0.6-1.3); POTASSIUM 4.3 mmol/L (3.5-5.1)
[2020-06-07 08:11] VITALS: BP 132/75
[2020-06-07 19:30] VITALS: BP 112/43
[2020-06-08 08:00] VITALS: BP 139/67
[2020-06-08 20:20] VITALS: BP 107/49
[2020-06-09 07:30] VITALS: BP 136/70
[2020-06-09 20:30] VITALS: BP 99/47
[2020-06-10 07:30] VITALS: BP 117/40
[2020-06-10 08:00] VITALS: BP 117/40
[2020-06-10 20:31] VITALS: BP 99/50
[2020-06-11 04:51] LABS: CALCIUM 7.9 mg/dL (8.5-10.1); CREATININE 1.3 mg/dL (0.6-1.3); POTASSIUM 5.1 mmol/L (3.5-5.1)
[2020-06-11 07:30] VITALS: BP 127/61
[2020-06-11 19:25] VITALS: BP 118/52
[2020-06-12 08:30] VITALS: BP 123/61
[2020-06-12 20:00] VITALS: BP 122/61
[2020-06-13 08:00] VITALS: BP 124/60
[2020-06-13 12:06] LABS: ANA INTERPRETATION Positive (Negative)
[2020-06-13 20:00] VITALS: BP 125/63
[2020-06-14 07:40] VITALS: BP 141/71
--- NOTE | 2020-06-14 15:35 | CON ---
[address] [address] CONSULTATION Name: DOMENICO PRASAD Dm Room: [address] IN M.R.#: [id number] Admission: 06/06/20 Attend Phys: John Watts MD Discharge: Date of : [birth year] Report #: [id number] THIS REPORT FOR: //name// cc: Jane Dukes Ahmad W. DO ~ THIS REPORT FOR: //name// CC: Jane Watts DATE OF SERVICE: 06/08/2020 ADMISSION DIAGNOSIS: Fall, rib fractures. HISTORY OF PRESENT ILLNESS: The patient admitted status post fall with rib fractures. She is in for rehabilitation, currently has onychomycosis and painful callus to the right plantar forefoot. She has Oopvevx-Ogeen-Bhqzu disease. Concern for possible syncope or low blood pressure. She had normal echocardiogram and carotid Doppler. PHYSICAL EXAMINATION: Toenails are thickened, dystrophic with no paronychia or signs of infection. There are clinically consistent with onychomycosis. She has a callus to the right distal third toe with a rigid hammertoe deformity. No underlying ulceration noted. She has a callus to the right plantar forefoot with no inflammation or ulcer. She has palpable dorsalis pedis and posterior tibial pulses bilaterally with edema to both extremities. No pallor or cyanosis noted. IMPRESSION: Onychomycosis, calluses, corn right distal third toe. PLAN: Toenails and callus/corns were manually mechanically debrided. <ELECTRONICALLY SIGNED> By: Shahid Mullen DPM 06/14/20 1535 1818 1938Shahid Mullen DPM /nt
[2020-06-14 20:00] VITALS: BP 95/52
[2020-06-15 08:00] VITALS: BP 121/68
[2020-06-15 20:26] VITALS: BP 136/66
[2020-06-16 08:31] VITALS: BP 147/71
[2020-06-16] MEDS ORDERED: TRAMADOL 50 MG50 MG PO (12:50)
[2020-06-16] MEDS ORDERED: VOLTAREN GEL 1100 G1 TOP (12:52)
[2020-06-16 12:53] VITALS: BP 147/71
[2020-06-16 13:01] VITALS: BP 147/71
== END 2020-06-16 13:20 | disposition home or self-care (01) | DRG 183 ==
LOC: M.REH 12:01
PROVIDERS: Internal Medicine; ADMIT Physical Medicine & Rehabilitation; ATTEND Physical Medicine & Rehabilitation
PROC: 0HBRXZZ Excision of Toe Nail, External Approach (ICD-10-PCS; principal; 2020-06-06)
DX: S22.49XA Multiple fractures of ribs, unspecified side, initial encounter for closed fracture (principal); N17.0 Acute kidney failure with tubular necrosis; I50.42 Chronic combined systolic (congestive) and diastolic (congestive) heart failure; I13.0 Hypertensive heart and chronic kidney disease with heart failure and stage 1 through stage 4 chronic kidney disease, or unspecified chronic kidney disease; B35.1 Tinea unguium; N18.9 Chronic kidney disease, unspecified; K52.831 Collagenous colitis; G60.0 Hereditary motor and sensory neuropathy; K52.9 Noninfective gastroenteritis and colitis, unspecified; G25.81 Restless legs syndrome; I73.9 Peripheral vascular disease, unspecified; R53.81 Other malaise; I48.91 Unspecified atrial fibrillation; W18.39XA Other fall on same level, initial encounter; Y93.89 Activity, other specified; Y92.89 Other specified places as the place of occurrence of the external cause; Y99.8 Other external cause status; Z88.0 Allergy status to penicillin; Z88.2 Allergy status to sulfonamides; Z88.8 Allergy status to other drugs, medicaments and biological substances; Z95.0 Presence of cardiac pacemaker; Z86.718 Personal history of other venous thrombosis and embolism

== ENCOUNTER → 2020-06-27 | Outpatient (CLI) | payer MEDICARE, MEDICAID ==
[~2020-06-27] MED LIST changes: +VOLTAREN GEL 1100 G1 TOP
== END ==
LOC: M.WC 03:28
PROVIDERS: ATTEND Emergency Medicine Undersea and Hyperbaric Medicine
DX: I70.232 Atherosclerosis of native arteries of right leg with ulceration of calf (principal); L97.212 Non-pressure chronic ulcer of right calf with fat layer exposed; I89.0 Lymphedema, not elsewhere classified; I50.20 Unspecified systolic (congestive) heart failure; K21.9 Gastro-esophageal reflux disease without esophagitis; F41.9 Anxiety disorder, unspecified; Z95.0 Presence of cardiac pacemaker

== ENCOUNTER → 2020-07-11 | Outpatient (CLI) | payer MEDICARE, MEDICAID | LOC: M.WC 05:01 | PROVIDERS: ATTEND Emergency Medicine Undersea and Hyperbaric Medicine | DX: I70.232 Atherosclerosis of native arteries of right leg with ulceration of calf (principal); L97.212 Non-pressure chronic ulcer of right calf with fat layer exposed; I89.0 Lymphedema, not elsewhere classified; I50.20 Unspecified systolic (congestive) heart failure; K21.9 Gastro-esophageal reflux disease without esophagitis; F41.9 Anxiety disorder, unspecified; Z95.0 Presence of cardiac pacemaker ==

== ENCOUNTER → 2020-07-25 | Outpatient (CLI) | payer MEDICARE, MEDICAID | LOC: M.WC 10:10 | PROVIDERS: ATTEND Emergency Medicine Undersea and Hyperbaric Medicine | DX: I70.232 Atherosclerosis of native arteries of right leg with ulceration of calf (principal); L97.212 Non-pressure chronic ulcer of right calf with fat layer exposed; I89.0 Lymphedema, not elsewhere classified; I50.20 Unspecified systolic (congestive) heart failure; I87.8 Other specified disorders of veins; F41.9 Anxiety disorder, unspecified; Z95.0 Presence of cardiac pacemaker ==

== ENCOUNTER → 2020-08-08 | Outpatient (CLI) | payer MEDICARE, MEDICAID | LOC: M.WC 08:13 | PROVIDERS: ATTEND Emergency Medicine Undersea and Hyperbaric Medicine | DX: I70.232 Atherosclerosis of native arteries of right leg with ulceration of calf (principal); L97.212 Non-pressure chronic ulcer of right calf with fat layer exposed; I89.0 Lymphedema, not elsewhere classified; I50.20 Unspecified systolic (congestive) heart failure; K21.9 Gastro-esophageal reflux disease without esophagitis; F41.9 Anxiety disorder, unspecified; Z95.0 Presence of cardiac pacemaker ==

== ENCOUNTER 2020-11-08 13:00 | Inpatient (IN) | payer MEDICAID ==
[~2020-11-08] VITALS: Ht 167.6 cm; Wt 67.4 kg
--- NOTE | ~2020-11-08 | EMS ---
[address] [address] EMS Patient Care Report Name: DOMENICO PRASAD Room: [address] IN M.R.#: [id number] Admission: 11/08/20 Attend Phys: Jimmie Collins MD Discharge: 11/14/20 Date of : [birth year] Report #: [id number] THIS REPORT FOR: //name// Report Transmitted: 11/17/2020 09:02 EMS Care Summary [facility] [employer] [facility] [employer] [facility] Incident 21-112 @ 11/08/2020 12:17 Incident Location [address] [place] [address] Patient DOMENICO PRASAD Female, 89 Years 1930 Patient Address [address] [place] [address] Patient History Pacemaker/AICD,Atrial Fibrillation, Patient Allergies Penicillin allergy, Patient Medications Allopurinol, Crestor, Aspirin, Bentyl, Chief Complaint hip pain Disposition Transported No Lights/[place] [facility] Reason Falls Transported To [facility] Narrative [facility] was dispatched to [facility] for a fall. Med 2 and Utility 1 went in route BLS. Upon arrival, residential staff showed EMS crew to patients room. Patient was found sitting on the floor in front of her chair. She stated that she had not been there long. She stated that she thinks she may have hurt her [address] [place] [address] EMS Patient Care Report Name: DOMENICO PRASAD Room: [address] IN M.R.#: [id number] Admission: 11/08/20 Attend Phys: Jimmie Collins MD Discharge: 11/14/20 Date of : [birth year] Report #: [id number] hip upon falling. No deformities were noticed upon palpation and PMS were present. Patient was then lifted into her chair to see if she could stand up with her walker like normal. Patient could not stand with use of walker so transport decision was made to go to [facility] for further care. Patient was then lifted by my partner and myself to stretcher and was packaged for transport. While in ambulance vitals and prior medical history were obtained and monitored again during transport. Patient found most comfort in semi fowlers position, but was overall uncomfortable from fall. while in route she stated that the right side of her face was starting to hurt and thinks she may have grazed her chairside table on the way down. Patient stated no loss of consciousness. Med 2 arrived at [facility] and care was transferred. Initial Vitals @12:38P: 92,R: 14,BP: 138/87,Pain: 4/10,GCS: 15,SpO2: 94,Revised Trauma: 12, @12:46P: 89,R: 14,BP: 142/82,Pain: 4/10,GCS: 15,SpO2: 95,Revised Trauma: 12, Assessments @12:22MENTAL:Person Oriented,Time Oriented,Place Oriented,Event Oriented,SKIN:HEENT:Head/Face: No Abnormalities,Neck/Airway: No Abnormalities,LUNG SOUNDS:General: No Abnormalities,Left Upper: No Abnormalities,Right Upper: No Abnormalities,Left Lower: No Abnormalities,Right Lower: No Abnormalities,ABDOMEN:General: No Abnormalities,Left Upper: No Abnormalities,Right Upper: No Abnormalities,Left Lower: No Abnormalities,Right Lower: No Abnormalities,PELVIS//GI:Tenderness,EXTREMITIES:Left Arm: Other,Right Leg: Other,Right Arm: No Abnormalities,Left Leg: No Abnormalities,PULSE:Radial: 2+ Normal,NEURO:No Abnormalities, Impression Injury of Hip Procedures @12:22BLS AssessmentResponse: Unchanged Timeline 12:14,Call Received 12:17,Dispatched 12:17,En Route 12:18,On Scene 12:18,At Patient 12:22,BLS Assessment,Response: Unchanged 12:38,BP: 138/87 M,PULSE: 92,RR: 14 R,SPO2: 94 Ox,ETCO2: ,BG: ,PAIN: 4,GCS: 15, 12:39,Depart Scene 12:46,BP: 142/82 M,PULSE: 89,RR: 14 R,SPO2: 95 Ox,ETCO2: ,BG: ,PAIN: 4,GCS: 15, 12:57,At Destination 13:26,[place] [address] EMS Patient Care Report Name: DOMENICO PRASAD Room: [address]R.#: [id number] Admission: 11/08/20 Attend Phys: Jimmie Collins MD Discharge: 11/14/20 Date of : [birth year] Report #: [id number] 13:26,In District Disclaimer v1.1 Copyright 2020 [employer] This EMS Care Summary contains data elements from the applicable legal record (which may be displayed differently). It is designed to provide pertinent information for the following purposes: continuity of care, clinical quality, and state data reporting. The complete legal record is available to ED staff and administrators of the receiving hospital in [employer]'s Patient Tracker. All data is provided "as is."
[2020-11-08 13:03] VITALS: BP 176/94
[2020-11-08 13:37] LABS: ABSOLUTE BASOPHILS 0.1 thou/uL (0.0-0.2); ABSOLUTE EOSINOPHILS 0.2 thou/uL (0.0-0.7); ABSOLUTE LYMPHOCYTES 1.4 thou/uL (0.8-5.3); ABSOLUTE MONOCYTES 0.7 thou/uL (0.0-1.2); ABSOLUTE NEUTROPHILS 9.5 thou/uL (1.6-8.1); BASOPHILS 0.6 %; EOSINOPHILS 1.6 %; HEMATOCRIT 37.7 % (37.0-47.0); HEMOGLOBIN 12.3 gm/dL (12.0-15.0); LYMPHOCYTES 11.5 %; MCH 32.3 pg (26.0-34.0); MCHC 32.7 g/dL (28.0-37.0); MCV 98.8 fL (80.0-100.0); MONOCYTES 5.9 %; MPV 9.5 fl. (7.2-11.1); NUCLEATED RBCS 0 /100WBC; PLATELET COUNT* 225 thou/uL (150-400); POLYS 80.4 %; RBC 3.81 mil/uL (4.20-5.00); RDW-CV 16.8 % (10.5-14.5); WBC 11.9 thou/uL (4.0-11.0)
[2020-11-08 13:39] LABS: URINE BILIRUBIN NEGATIVE (Negative); URINE BLOOD TRACE (Negative); URINE CLARITY CLEAR; URINE COLOR YELLOW; URINE GLUCOSE-RANDOM NEGATIVE (Negative); URINE KETONES NEGATIVE (Negative); URINE LEUKOCYTES-REFLEX NEGATIVE (Negative); URINE NITRITE-REFLEX NEGATIVE (Negative); URINE PROTEIN NEGATIVE (Negative); URINE UROBILINOGEN 0.2 E.U./dl (0.2-1.0)
[2020-11-08 13:42] LABS: CALCIUM 9.5 mg/dL (8.5-10.1); CREATININE 1.6 mg/dL (0.6-1.3); POTASSIUM 3.4 mmol/L (3.5-5.1)
[2020-11-08 13:46] LABS: ALBUMIN 3.3 g/dL (3.4-5.0); APTT 22.7 Seconds (25.0-31.3); PROTIME 10.3 Seconds (9.20-11.50); TOTAL BILIRUBIN 0.4 mg/dL (<0.1-1.0); TOTAL PROTEIN 6.8 g/dL (6.4-8.2)
[2020-11-08] MEDS ORDERED: FISH OIL 1,001000 M3 PO (14:01)
[2020-11-08] MEDS ORDERED: CRESTOR5 MG PO (14:02)
[2020-11-08] MEDS ORDERED: ALLOPURINOL 10100 M1 PO (14:02)
[2020-11-08] MEDS ORDERED: PROTONIX40 M3 PO (14:03)
[2020-11-08] MEDS ORDERED: VOLTAREN GEL 1100 G1 TOP (14:05)
--- NOTE | 2020-11-08 15:38 | EKG ---
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 : 1930 Requested By: Arcenio Ray Order Number: [id number] MD: Da Santana Measurements Intervals [place] Rate: 89 P: 0 OR: 53 QRS: 253 QRSD: 117 T: 102 QT: 398 QTc: 485 Interpretive Statements Ventricular-paced complexes No further analysis attempted due to paced rhythm Compared to ECG 06/02/2020 08:13:44 No significant changes Electronically Signed On 11-08-2020 15:38:40 MINERAL SURVEYING TECHNICIAN by Da Santana [email or web address] <ELECTRONICALLY SIGNED> By: Da Santana MD, [facility] 11/08/20 1538 1308 1308 Da Santana MD, [facility] /EPI
[2020-11-08 17:15] VITALS: BP 100/55
[2020-11-08 17:20] VITALS: BP 112/50
[2020-11-08] MEDS ORDERED: SPIRONOLACTONE25 MG PO (18:25)
[2020-11-08 19:45] VITALS: BP 108/55
[2020-11-09 00:23] VITALS: BP 121/44
[2020-11-09 04:01] LABS: ABSOLUTE EOSINOPHILS 0.1 thou/uL (0.0-0.7); ABSOLUTE LYMPHOCYTES 1.2 thou/uL (0.8-5.3); ABSOLUTE MONOCYTES 0.7 thou/uL (0.0-1.2); ABSOLUTE NEUTROPHILS 5.6 thou/uL (1.6-8.1); BASOPHILS 0.4 %; EOSINOPHILS 0.8 %; HEMATOCRIT 30.4 % (37.0-47.0); LYMPHOCYTES 15.3 %; MCH 33.2 pg (26.0-34.0); MCHC 33.6 g/dL (28.0-37.0); MONOCYTES 9.2 %; NUCLEATED RBCS 0 /100WBC; PLATELET COUNT* 174 thou/uL (150-400); POLYS 74.3 %; RBC 3.07 mil/uL (4.20-5.00); RDW-CV 16.8 % (10.5-14.5); WBC 7.6 thou/uL (4.0-11.0)
[2020-11-09 04:13] LABS: CALCIUM 8.7 mg/dL (8.5-10.1); CREATININE 1.6 mg/dL (0.6-1.3)
[2020-11-09 04:14] LABS: POTASSIUM 5.1 mmol/L (3.5-5.1)
[2020-11-09 04:50] LABS: HEMOGLOBIN 10.2 gm/dL (12.0-15.0)
[2020-11-09 08:20] VITALS: BP 93/54
[2020-11-09 12:00] VITALS: BP 90/43
[2020-11-09 16:00] VITALS: BP 124/49
[2020-11-09 20:00] VITALS: BP 91/45
[2020-11-09 21:06] LABS: URINE PROTEIN (MG/DL) < 4.0 mg/dL (Not Estab.)
[2020-11-09 21:06] LABS: GLOBULIN TOTAL 3.1 g/dL (2.2-3.9); M-SPIKE Not Observed g/dL (Not Observed)
[2020-11-10 00:56] VITALS: BP 100/52
[2020-11-10 07:45] VITALS: BP 112/57
[2020-11-10 20:30] VITALS: BP 115/45
[2020-11-11] VITALS: BP 96/51
[2020-11-11 04:00] VITALS: BP 115/52
[2020-11-11 04:28] LABS: HEMATOCRIT 26.2 % (37.0-47.0); HEMOGLOBIN 8.7 gm/dL (12.0-15.0); MCH 33.1 pg (26.0-34.0); MCHC 33.4 g/dL (28.0-37.0); MCV 98.9 fL (80.0-100.0); RBC 2.64 mil/uL (4.20-5.00); RDW-CV 17.2 % (10.5-14.5); WBC 10.3 thou/uL (4.0-11.0)
[2020-11-11 04:43] LABS: CALCIUM 8.7 mg/dL (8.5-10.1); CREATININE 1.9 mg/dL (0.6-1.3); POTASSIUM 5.4 mmol/L (3.5-5.1)
[2020-11-11 08:00] VITALS: BP 125/55
[2020-11-11 16:40] VITALS: BP 101/47
[2020-11-11 20:30] VITALS: BP 113/46
[2020-11-12] VITALS: BP 103/46
[2020-11-12 04:57] LABS: CALCIUM 8.3 mg/dL (8.5-10.1); CREATININE 2.5 mg/dL (0.6-1.3)
[2020-11-12 05:18] LABS: HEMATOCRIT 24.1 % (37.0-47.0); HEMOGLOBIN 8.1 gm/dL (12.0-15.0); MCH 33.4 pg (26.0-34.0); MCHC 33.5 g/dL (28.0-37.0); MCV 99.7 fL (80.0-100.0); RBC 2.42 mil/uL (4.20-5.00); RDW-CV 17.1 % (10.5-14.5); WBC 8.1 thou/uL (4.0-11.0)
[2020-11-12 08:01] VITALS: BP 104/54
[2020-11-12 16:00] VITALS: BP 108/45
--- NOTE | 2020-11-12 16:10 | OP ---
[address] [address] OPERATIVE REPORT Name: DOMENICO PRASAD Room: [address] IN M.R.#: [id number] Admission: 11/08/20 Attend Phys: Jimmie Collins MD Discharge: Date of : [birth year] Report #: [id number] THIS REPORT FOR: cc: Jane Dukes Ahmad W. DO ~ Gera Almonte DO DATE OF SERVICE: 11/10/2020 ORTHOPEDIC SURGERY NOTE PREOPERATIVE DIAGNOSIS: Right femoral neck fracture. POSTOPERATIVE DIAGNOSES: Right femoral neck fracture, osteoporosis. SURGERY PERFORMED: Kanu open reduction and internal fixation of right femoral neck fracture with cannulated screws. SURGEON: Gera Almonte DO ANESTHESIA: Spinal anesthetic. Did receive Ancef 2 g IV piggyback preoperatively. SPECIMENS: None. COMPLICATIONS: None. DRAINS: None. ESTIMATED BLOOD LOSS: 50 mL. GROSS FINDINGS: X-rays scanning including CT and femur x-rays correlate with a femoral neck fracture. Subcortical disruption was noted proximally. Intraoperatively, it was clearly noted on the C-arm views. The patient, post-placement of the screw fixation, demonstrated anatomic reduction, AP and lateral views. SURGERY IN DETAIL: The patient was taken to the operating room, given a spinal anesthetic while still intubated and transferred over to the Bryant table. She had appropriate position at that point in time and x-rays were taken, both AP and lateral with the C-arm verifying adequate anatomic position. I chlorhexidine prepped this extremity and then went ahead and draped out the right leg. A timeout was called and verified by everyone in the room for the right hip. Surgery began making a longitudinal incision at the lateral aspect of the hip and at this point in time, from the greater [place] [address] OPERATIVE REPORT Name: DOMENICO PRASAD Room: [address] IN [facility].#: [id number] Admission: 11/08/20 Attend Phys: Jimmie Collins MD Discharge: Date of : [birth year] Report #: [id number] the lesser trochanter, a #10 blade scalpel through the skin and subcutaneous tissues down to the tensor, which was split longitudinally and then an elevator was used to elevate off the deep muscles. Three cannulated screws were placed across this lateral aspect of the hip up into the femoral neck and the head using C-arm for guidance and orthopedically instructed C-arm views taken throughout surgery. Once the wires were in place, I reamed the outer cortex and placed 3 cannulated screws over those guidewires, one using a washer. Surgery continued at this point in time then with verifying an anatomic position of the hip fracture. Final x-rays were taken. I copiously irrigated with normal saline. Tensor was closed with 0 Vicryl in [id number]-bw-[id number] fashion, the subcutaneous tissue with 2-0 Monocryl inverted fashion and running Stratafix. Mepilex dressing was applied, transferred off the table and taken to the recovery in stable condition. I attest I was present for all critical aspects of the surgery. Hastings, instrument and sponge counts correct. <ELECTRONICALLY SIGNED> By: Gera Almonte DO 11/12/20 1610 1651 [id number] Almonte DO /nt
[2020-11-12 20:00] VITALS: BP 99/50
[2020-11-12 23:33] VITALS: BP 115/52
[2020-11-13] VITALS (10 sets, daily range): BP systolic 111–174; BP diastolic 49–70
[2020-11-13 04:51] LABS: HEMATOCRIT 21.3 % (37.0-47.0); HEMOGLOBIN 7.1 gm/dL (12.0-15.0); MCH 33.3 pg (26.0-34.0); MCHC 33.4 g/dL (28.0-37.0); MCV 99.6 fL (80.0-100.0); MPV 9.5 fl. (7.2-11.1); RBC 2.14 mil/uL (4.20-5.00); RDW-CV 16.8 % (10.5-14.5); WBC 6.7 thou/uL (4.0-11.0)
[2020-11-13 05:21] LABS: CALCIUM 7.6 mg/dL (8.5-10.1); CREATININE 2.3 mg/dL (0.6-1.3); POTASSIUM 5.1 mmol/L (3.5-5.1)
[2020-11-13 21:05] LABS: HEMATOCRIT 28.2 % (37.0-47.0)
[2020-11-13 21:06] LABS: HEMOGLOBIN 9.4 gm/dL (12.0-15.0)
[2020-11-14 04:33] LABS: ABSOLUTE EOSINOPHILS 0.3 thou/uL (0.0-0.7); ABSOLUTE LYMPHOCYTES 1.2 thou/uL (0.8-5.3); ABSOLUTE MONOCYTES 0.6 thou/uL (0.0-1.2); ABSOLUTE NEUTROPHILS 5.7 thou/uL (1.6-8.1); BASOPHILS 0.6 %; EOSINOPHILS 4.2 %; HEMATOCRIT 24.7 % (37.0-47.0); HEMOGLOBIN 8.3 gm/dL (12.0-15.0); LYMPHOCYTES 14.9 %; MCH 32.6 pg (26.0-34.0); MCHC 33.7 g/dL (28.0-37.0); MCV 96.7 fL (80.0-100.0); MONOCYTES 7.8 %; MPV 8.8 fl. (7.2-11.1); NUCLEATED RBCS 0 /100WBC; PLATELET COUNT* 195 thou/uL (150-400); POLYS 72.5 %; RBC 2.56 mil/uL (4.20-5.00); WBC 7.8 thou/uL (4.0-11.0)
[2020-11-14 05:30] LABS: CALCIUM 7.9 mg/dL (8.5-10.1); CREATININE 1.8 mg/dL (0.6-1.3); TOTAL BILIRUBIN 0.5 mg/dL (<0.1-1.0); TOTAL PROTEIN 4.9 g/dL (6.4-8.2)
[2020-11-14 07:20] VITALS: BP 114/41
[2020-11-14] MEDS ORDERED: ELIQUIS5 MG PO (12:44)
== END 2020-11-14 17:31 | DRG 480 ==
LOC: M.ERS 13:00 → M.TBA-ER 14:50 → M.2W 14:50 → M.3W 16:41 → M.2W 18:57 → M.3W 11-13 18:07
PROVIDERS: Family Medicine; Internal Medicine; Orthopaedic Surgery; ADMIT Internal Medicine; ATTEND Internal Medicine
PROC: 0QS604Z Reposition Right Upper Femur with Internal Fixation Device, Open Approach (ICD-10-PCS; principal; 2020-11-10)
PROC: 30233N1 Transfusion of Nonautologous Red Blood Cells into Peripheral Vein, Percutaneous Approach (ICD-10-PCS; 2020-11-13)
DX: M80.051A Age-related osteoporosis with current pathological fracture, right femur, initial encounter for fracture (principal); N17.0 Acute kidney failure with tubular necrosis; I50.42 Chronic combined systolic (congestive) and diastolic (congestive) heart failure; I13.0 Hypertensive heart and chronic kidney disease with heart failure and stage 1 through stage 4 chronic kidney disease, or unspecified chronic kidney disease; D62 Acute posthemorrhagic anemia; I48.91 Unspecified atrial fibrillation; G25.81 Restless legs syndrome; I73.9 Peripheral vascular disease, unspecified; M19.90 Unspecified osteoarthritis, unspecified site; M16.0 Bilateral primary osteoarthritis of hip; M17.11 Unilateral primary osteoarthritis, right knee; M19.09 Primary osteoarthritis, other specified site; N18.30 Chronic kidney disease, stage 3 unspecified; I35.0 Nonrheumatic aortic (valve) stenosis; E87.5 Hyperkalemia; K52.9 Noninfective gastroenteritis and colitis, unspecified; G60.0 Hereditary motor and sensory neuropathy; E87.6 Hypokalemia; Z20.822 Contact with and (suspected) exposure to COVID-19; Z86.718 Personal history of other venous thrombosis and embolism; Z88.0 Allergy status to penicillin; Z88.2 Allergy status to sulfonamides; Z88.8 Allergy status to other drugs, medicaments and biological substances; Z95.810 Presence of automatic (implantable) cardiac defibrillator

== ENCOUNTER 2020-11-14 15:26 | Inpatient (IN) | payer MEDICAID ==
[~2020-11-14] VITALS: Ht 167.6 cm; Wt 63.9 kg
[~2020-11-14 15:26] MED LIST changes: +ALLOPURINOL 10100 M1 PO; +ELIQUIS5 MG PO; +FISH OIL 1,001000 M3 PO; +PROTONIX40 M3 PO; +SPIRONOLACTONE25 MG PO
[2020-11-14 21:00] VITALS: BP 130/67
[2020-11-15 04:51] LABS: HEMATOCRIT 26.2 % (37.0-47.0); HEMOGLOBIN 8.8 gm/dL (12.0-15.0); MCHC 33.6 g/dL (28.0-37.0); MCV 98.2 fL (80.0-100.0); MPV 8.1 fl. (7.2-11.1); RBC 2.67 mil/uL (4.20-5.00); RDW-CV 17.1 % (10.5-14.5); WBC 7.1 thou/uL (4.0-11.0)
[2020-11-15 05:26] LABS: CALCIUM 8.6 mg/dL (8.5-10.1); CREATININE 1.5 mg/dL (0.6-1.3); POTASSIUM 4.9 mmol/L (3.5-5.1)
[2020-11-15 07:40] VITALS: BP 129/57
[2020-11-15 20:25] VITALS: BP 131/55
[2020-11-16 07:30] VITALS: BP 128/53
[2020-11-16 20:30] VITALS: BP 139/55
[2020-11-17 07:47] VITALS: BP 140/59
[2020-11-17 20:00] VITALS: BP 153/63
[2020-11-18 08:03] VITALS: BP 136/61
[2020-11-18 09:46] LABS: ABSOLUTE BASOPHILS 0.1 thou/uL (0.0-0.2); ABSOLUTE EOSINOPHILS 0.2 thou/uL (0.0-0.7); ABSOLUTE LYMPHOCYTES 0.9 thou/uL (0.8-5.3); ABSOLUTE MONOCYTES 0.5 thou/uL (0.0-1.2); ABSOLUTE NEUTROPHILS 4.9 thou/uL (1.6-8.1); BASOPHILS 0.8 %; EOSINOPHILS 3.5 %; HEMATOCRIT 26.8 % (37.0-47.0); LYMPHOCYTES 14.1 %; MCH 33.7 pg (26.0-34.0); MCHC 33.5 g/dL (28.0-37.0); MCV 100.6 fL (80.0-100.0); MONOCYTES 7.5 %; MPV 8.3 fl. (7.2-11.1); NUCLEATED RBCS 1 /100WBC; PLATELET COUNT* 327 thou/uL (150-400); POLYS 74.1 %; RBC 2.66 mil/uL (4.20-5.00); RDW-CV 17.9 % (10.5-14.5); WBC 6.6 thou/uL (4.0-11.0)
[2020-11-18 10:02] LABS: ALBUMIN 2.5 g/dL (3.4-5.0); CALCIUM 8.3 mg/dL (8.5-10.1); CREATININE 1.4 mg/dL (0.6-1.3); POTASSIUM 4.4 mmol/L (3.5-5.1); TOTAL BILIRUBIN 0.7 mg/dL (<0.1-1.0); TOTAL PROTEIN 5.8 g/dL (6.4-8.2)
[2020-11-18 19:00] VITALS: BP 115/52
[2020-11-19 09:19] VITALS: BP 134/53
[2020-11-19 20:00] VITALS: BP 119/56
[2020-11-20 08:09] VITALS: BP 146/62
[2020-11-20 19:00] VITALS: BP 124/54
[2020-11-21 07:45] VITALS: BP 127/55
[2020-11-21 19:00] VITALS: BP 136/60
[2020-11-22 04:28] LABS: HEMATOCRIT 26.2 % (37.0-47.0); HEMOGLOBIN 8.7 gm/dL (12.0-15.0); MCH 33.7 pg (26.0-34.0); MCHC 33.3 g/dL (28.0-37.0); MCV 101.2 fL (80.0-100.0); MPV 7.7 fl. (7.2-11.1); RBC 2.59 mil/uL (4.20-5.00); RDW-CV 18.4 % (10.5-14.5); WBC 6.3 thou/uL (4.0-11.0)
[2020-11-22 05:03] LABS: CALCIUM 8.2 mg/dL (8.5-10.1); CREATININE 1.3 mg/dL (0.6-1.3); POTASSIUM 4.6 mmol/L (3.5-5.1)
[2020-11-22 08:00] VITALS: BP 122/68
[2020-11-22 19:00] VITALS: BP 118/55
[2020-11-23 08:17] VITALS: BP 143/56
[2020-11-23 20:23] VITALS: BP 124/52
[2020-11-24 07:50] VITALS: BP 129/55
[2020-11-24 20:25] VITALS: BP 137/57
[2020-11-25 08:31] VITALS: BP 152/68
[2020-11-25 19:45] VITALS: BP 123/41
[2020-11-26 07:51] VITALS: BP 128/54
[2020-11-26 20:00] VITALS: BP 121/47
[2020-11-27 04:56] LABS: HEMATOCRIT 27.1 % (37.0-47.0); HEMOGLOBIN 8.9 gm/dL (12.0-15.0); MCH 33.8 pg (26.0-34.0); MCHC 32.6 g/dL (28.0-37.0); MCV 103.5 fL (80.0-100.0); MPV 7.7 fl. (7.2-11.1); RBC 2.62 mil/uL (4.20-5.00); RDW-CV 20.8 % (10.5-14.5); WBC 4.3 thou/uL (4.0-11.0)
[2020-11-27 05:07] LABS: CALCIUM 8.7 mg/dL (8.5-10.1); CREATININE 1.4 mg/dL (0.6-1.3); MAGNESIUM 2.3 mg/dL (1.8-2.4); POTASSIUM 4.3 mmol/L (3.5-5.1)
[2020-11-27 08:13] VITALS: BP 179/57
[2020-11-27 19:00] VITALS: BP 128/54
[2020-11-28 08:00] VITALS: BP 155/73
[2020-11-28 13:07] LABS: CREATININE 1.4 mg/dL (0.6-1.3); POTASSIUM 4.6 mmol/L (3.5-5.1)
[2020-11-28 19:00] VITALS: BP 120/44
[2020-11-29 04:46] LABS: HEMATOCRIT 26.4 % (37.0-47.0); HEMOGLOBIN 8.6 gm/dL (12.0-15.0); MCHC 32.7 g/dL (28.0-37.0); MPV 7.9 fl. (7.2-11.1); RBC 2.54 mil/uL (4.20-5.00); RDW-CV 21.3 % (10.5-14.5); WBC 4.9 thou/uL (4.0-11.0)
[2020-11-29 04:58] LABS: CALCIUM 8.7 mg/dL (8.5-10.1); CREATININE 1.6 mg/dL (0.6-1.3); POTASSIUM 4.3 mmol/L (3.5-5.1)
[2020-11-29 08:21] VITALS: BP 133/57
[2020-11-29 20:22] VITALS: BP 121/38
[2020-11-30 08:28] VITALS: BP 138/61
[2020-11-30 20:30] VITALS: BP 139/59
[2020-12-01 05:08] LABS: CALCIUM 8.9 mg/dL (8.5-10.1); CREATININE 1.4 mg/dL (0.6-1.3); POTASSIUM 4.7 mmol/L (3.5-5.1)
[2020-12-01 08:00] VITALS: BP 151/71
[2020-12-01 20:24] VITALS: BP 121/47
[2020-12-01 21:25] VITALS: BP 121/47
[2020-12-02 07:50] VITALS: BP 143/59
[2020-12-02 20:00] VITALS: BP 136/48
[2020-12-03 05:17] LABS: CALCIUM 9.2 mg/dL (8.5-10.1); CREATININE 1.4 mg/dL (0.6-1.3); POTASSIUM 4.5 mmol/L (3.5-5.1)
[2020-12-03 07:40] VITALS: BP 156/59
[2020-12-03 19:52] VITALS: BP 127/45
[2020-12-04 07:40] VITALS: BP 159/57
[2020-12-04 20:00] VITALS: BP 133/50
[2020-12-05 07:33] VITALS: BP 136/49
[2020-12-05 19:00] VITALS: BP 129/49
[2020-12-06 05:11] LABS: HEMATOCRIT 28.1 % (37.0-47.0); HEMOGLOBIN 9.4 gm/dL (12.0-15.0); MCH 34.7 pg (26.0-34.0); MCHC 33.4 g/dL (28.0-37.0); MCV 103.7 fL (80.0-100.0); MPV 8.2 fl. (7.2-11.1); RBC 2.71 mil/uL (4.20-5.00); RDW-CV 20.1 % (10.5-14.5); WBC 4.1 thou/uL (4.0-11.0)
[2020-12-06 05:30] LABS: CALCIUM 8.7 mg/dL (8.5-10.1); CREATININE 1.4 mg/dL (0.6-1.3); POTASSIUM 4.3 mmol/L (3.5-5.1)
[2020-12-06 08:00] VITALS: BP 129/55
[2020-12-06 19:00] VITALS: BP 118/52
[2020-12-07 08:07] VITALS: BP 132/67
[2020-12-07 19:50] VITALS: BP 134/54
[2020-12-08 07:39] VITALS: BP 145/48
[2020-12-08 20:00] VITALS: BP 117/49
[2020-12-09 08:25] VITALS: BP 150/83
[2020-12-09 20:00] VITALS: BP 93/48
[2020-12-10 08:00] VITALS: BP 115/62
[2020-12-10 13:33] LABS: ABSOLUTE EOSINOPHILS 0.3 thou/uL (0.0-0.7); ABSOLUTE LYMPHOCYTES 1.2 thou/uL (0.8-5.3); ABSOLUTE MONOCYTES 0.7 thou/uL (0.0-1.2); ABSOLUTE NEUTROPHILS 3.7 thou/uL (1.6-8.1); BASOPHILS 0.8 %; EOSINOPHILS 4.5 %; HEMATOCRIT 33.8 % (37.0-47.0); HEMOGLOBIN 10.9 gm/dL (12.0-15.0); LYMPHOCYTES 20.7 %; MCH 33.8 pg (26.0-34.0); MCHC 32.1 g/dL (28.0-37.0); MCV 105.2 fL (80.0-100.0); MONOCYTES 11.3 %; MPV 8.9 fl. (7.2-11.1); NUCLEATED RBCS 0 /100WBC; PLATELET COUNT* 327 thou/uL (150-400); POLYS 62.7 %; RBC 3.22 mil/uL (4.20-5.00); RDW-CV 19.6 % (10.5-14.5)
[2020-12-10 13:50] LABS: ALBUMIN 3.2 g/dL (3.4-5.0); CALCIUM 9.4 mg/dL (8.5-10.1); CREATININE 1.8 mg/dL (0.6-1.3); POTASSIUM 5.4 mmol/L (3.5-5.1); TOTAL BILIRUBIN 0.4 mg/dL (<0.1-1.0); TOTAL PROTEIN 6.8 g/dL (6.4-8.2)
[2020-12-10 20:00] VITALS: BP 145/62
[2020-12-10 20:08] VITALS: BP 145/62
[2020-12-11 01:23] LABS: URINE BILIRUBIN NEGATIVE (Negative); URINE BLOOD NEGATIVE (Negative); URINE CLARITY CLEAR; URINE COLOR YELLOW; URINE GLUCOSE-RANDOM NEGATIVE (Negative); URINE KETONES NEGATIVE (Negative); URINE LEUKOCYTES-REFLEX NEGATIVE (Negative); URINE NITRITE-REFLEX NEGATIVE (Negative); URINE PROTEIN NEGATIVE (Negative); URINE SPECIFIC GRAVITY 1.015 (1.005-1.030); URINE UROBILINOGEN 0.2 E.U./dl (0.2-1.0)
[2020-12-11 09:00] VITALS: BP 142/58
[2020-12-11 20:00] VITALS: BP 143/55
[2020-12-12 05:10] LABS: CALCIUM 10.3 mg/dL (8.5-10.1); CREATININE 1.8 mg/dL (0.6-1.3); POTASSIUM 5.3 mmol/L (3.5-5.1); URIC ACID* 9.5 mg/dL (2.6-7.2)
[2020-12-12 07:45] VITALS: BP 137/68
[2020-12-12 10:30] VITALS: BP 137/68
[2020-12-12 12:06] LABS: URINE PROTEIN (MG/DL) < 4.0 mg/dL (Not Estab.)
[2020-12-12 12:06] LABS: GLOBULIN TOTAL 2.7 g/dL (2.2-3.9); M-SPIKE Not Observed g/dL (Not Observed)
== END 2020-12-12 11:19 | disposition short-term general hospital (02) | DRG 536 ==
LOC: M.REH 15:26
PROVIDERS: Internal Medicine; ADMIT Physical Medicine & Rehabilitation; ATTEND Physical Medicine & Rehabilitation
DX: S32.591A Other specified fracture of right pubis, initial encounter for closed fracture (principal); D62 Acute posthemorrhagic anemia; I13.0 Hypertensive heart and chronic kidney disease with heart failure and stage 1 through stage 4 chronic kidney disease, or unspecified chronic kidney disease; L03.115 Cellulitis of right lower limb; M80.852A Other osteoporosis with current pathological fracture, left femur, initial encounter for fracture; S32.9XXA Fracture of unspecified parts of lumbosacral spine and pelvis, initial encounter for closed fracture; G60.0 Hereditary motor and sensory neuropathy; I50.9 Heart failure, unspecified; M10.9 Gout, unspecified; N18.9 Chronic kidney disease, unspecified; Z95.810 Presence of automatic (implantable) cardiac defibrillator; I48.91 Unspecified atrial fibrillation; K52.9 Noninfective gastroenteritis and colitis, unspecified; G25.81 Restless legs syndrome; I73.9 Peripheral vascular disease, unspecified; W01.0XXA Fall on same level from slipping, tripping and stumbling without subsequent striking against object, initial encounter; Y93.89 Activity, other specified; Y92.89 Other specified places as the place of occurrence of the external cause; Y99.8 Other external cause status; Z86.718 Personal history of other venous thrombosis and embolism; Z91.048 Other nonmedicinal substance allergy status; Z88.0 Allergy status to penicillin; Z88.2 Allergy status to sulfonamides; Z79.899 Other long term (current) drug therapy; E86.0 Dehydration

== ENCOUNTER 2020-12-12 10:41 | Inpatient (IN) | payer MEDICARE, MEDICAID ==
[~2020-12-12] VITALS: Ht 167.6 cm; Wt 72.3 kg
[2020-12-12 15:00] VITALS: BP 152/59
[2020-12-12 15:50] VITALS: BP 147/57
--- NOTE | 2020-12-12 16:25 | NUR ---
PT AWAKE/ALERT. VSS. CONFUSED AT TIMES. RESTING AFTER SURGERY. PT ARRIVED ON UNIT APPROX 1430. MEPILEX TO L HIP C/D/I. PT ASSISTED BY NURSING STAFF TO USE BEDPAN. PT REMAINS CONTINENT OF B/B. IV TO LFA PATENT, SALINE LOCKED. PT BELONGINGS WERE BROUGHT TO UNIT BY REHAB NURSING STAFF. PT TO BE WB TOLERATED. PT RESTS IN BED WITH CALL ILGHT IN REACH. FALL PRECAUTIONS IN PLACE.
[2020-12-12 19:50] VITALS: BP 133/53
[2020-12-12 23:50] VITALS: BP 145/53
--- NOTE | 2020-12-13 04:25 | NUR ---
PT A&O, ON RA. MEDS GIVEN ORDERED. PAIN MANAGED WITH TRAMADOL AND NORCO. DRESSING TO LT HIP C/D/I. NO N/V. CALL LIGHT WITHIN REACH. WILL CONTINUE TO MONTIOR.
[2020-12-13 04:42] LABS: ABSOLUTE LYMPHOCYTES 0.7 thou/uL (0.8-5.3); ABSOLUTE MONOCYTES 0.4 thou/uL (0.0-1.2); ABSOLUTE NEUTROPHILS 4.6 thou/uL (1.6-8.1); BASOPHILS 0.6 %; HEMATOCRIT 28.5 % (37.0-47.0); HEMOGLOBIN 9.4 gm/dL (12.0-15.0); LYMPHOCYTES 12.9 %; MCH 34.5 pg (26.0-34.0); MCHC 33.1 g/dL (28.0-37.0); MCV 104.4 fL (80.0-100.0); MONOCYTES 6.8 %; MPV 9.3 fl. (7.2-11.1); NUCLEATED RBCS 0 /100WBC; PLATELET COUNT* 285 thou/uL (150-400); POLYS 79.7 %; RBC 2.73 mil/uL (4.20-5.00); WBC 5.8 thou/uL (4.0-11.0)
[2020-12-13 04:50] LABS: CALCIUM 10.6 mg/dL (8.5-10.1); CREATININE 1.6 mg/dL (0.6-1.3)
[2020-12-13 04:54] LABS: POTASSIUM 6.2 mmol/L (3.5-5.1)
--- NOTE | 2020-12-13 07:01 | OP ---
[address] [address] OPERATIVE REPORT Name: DOMENICO PRASAD Room: [address] [place]#: [id number] Admission: 12/12/20 Attend Phys: Jimmie Collins MD Discharge: Date of : [birth year] Report #: [id number] THIS REPORT FOR: cc: Jane Dukes Ahmad W. DO ~ Gera Almonte DO DATE OF SERVICE: 12/12/2020 PREOPERATIVE DIAGNOSIS: Femoral neck fracture of the left hip. POSTOPERATIVE DIAGNOSIS: Femoral neck fracture of the left hip. PROCEDURES PERFORMED: Kanu 6.5 mm screw fixation via internal fixation. SURGEON: Gera Almonte DO INDICATIONS: General plus a block. Did receive Ancef 1 gram IV piggyback preoperatively. She has no specimens, no complications. Estimated blood loss, again minimal. GROSS FINDINGS: Prior to surgery, the patient had a history of recent onset of new pain to the left hip region. CT correlated with a femoral neck fracture. The post-placement of the screws demonstrated good placement of the 3 screws with in the femoral neck area using AP and lateral x-rays. DESCRIPTION OF PROCEDURE: The patient's surgery in detail. The patient was taken to the operating room. While on her bed, she had a general anesthetic applied. She was then transferred over to the fracture table. While on the fracture table x-rays were taken, AP and lateral views. Orthopedic surgeon verified appropriate position of the hip. She underwent a chlorhexidine prep and sterile drape and for left hip surgery and timeout was called to verified by everyone in the room for the left hip. Surgery began with making an incision just below the trochanter of the left hip with a 10 blade scalpel. The skin and subcutaneous tissues and I split the tensor longitudinally in line with the skin incision and then elevated that off of the femur. Three guidewires next placed using C-arm by orthopedic surgeon directed in AP and lateral views. Once they were placed in appropriate position, they were all measured. The outer cortex was reamed and 3 screws were placed without difficulty. Post-fixation x-rays were taken. Surgery continued. Copious irrigation. Deep tensor was closed with 2-0 Monocryl in a snpwwr-nd-vrtip fashion. Subcutaneous tissues inverted 2-0 Monocryl followed with a Stratafix, Dermabond, Mepilex dressing. Transferred off the table and taken [place] [address] OPERATIVE REPORT Name: DOMENICO PRASAD Room: [address]#: [id number] Admission: 12/12/20 Attend Phys: Jimmie Collins MD Discharge: Date of : [birth year] Report #: [id number] I attest I was present for all critical aspects of surgery. Needle, instruments, sponge counts were correct. <ELECTRONICALLY SIGNED> By: Gera Almonte DO 12/13/20 0701 1314 [id number] Almonte DO /nelson
--- NOTE | 2020-12-13 07:10 | NUR ---
CHANGE OF SHIFT BEDSIDE REPORT GIVEN PATIENT SEEN AT BEDSIDE, IN BED RESTING ASSUMED PATIENT CARE
--- NOTE | 2020-12-13 07:45 | NUR ---
PT TRANSFERED @ 0691 FROM [facility]IGH POTASSIUM. POTASSIUM REDRAWN FOR SAFTEY. AM MEDS GIVEN ALONG WITH ABX DUE AT 7008. REPORT GIVEN TO VONDA LAWSON.
[2020-12-13 08:00] VITALS: BP 114/70
[2020-12-13 11:53] VITALS: BP 126/66
--- NOTE | 2020-12-13 12:57 | NUR ---
Pt down from ARU, plans to return to ARU possibly tomorrow. Therapies ordered. ARU consulted. When not in ARU, Pt resides at the [facility] in [place]. Pt uses a walker for mobility[facility] Pt has a pd caregiver that comes in to assist as needed. [place]. Pt had surgery yesterday for left hip fx. Correcting K. Following.
[2020-12-13 16:56] VITALS: BP 135/61
[2020-12-13 20:00] VITALS: BP 156/81
[2020-12-14] VITALS (7 sets, daily range): BP systolic 111–131; BP diastolic 41–60
--- NOTE | 2020-12-14 04:31 | NUR ---
ASSUMED CARE OF PT AFTER REPORT AT 1930. PT A&OX4. VSS. PHYSICAL ASSESSMENT COMPLETED AND CHARTED. PT ON RA. PT TRACING VPACED ON TELE. PT UP WITH 2 ASSIST. PT WITH EPISODE OF NAUSEA & VOMITING-MED GIVEN PER DEC. FALL PRECAUTIONS IN PLACE. CALL LIGHT WITHIN REACH.
[2020-12-14 09:28] LABS: ABSOLUTE BASOPHILS 0.1 thou/uL (0.0-0.2); ABSOLUTE EOSINOPHILS 0.3 thou/uL (0.0-0.7); ABSOLUTE LYMPHOCYTES 0.8 thou/uL (0.8-5.3); ABSOLUTE MONOCYTES 0.3 thou/uL (0.0-1.2); ABSOLUTE NEUTROPHILS 4.9 thou/uL (1.6-8.1); BASOPHILS 0.9 %; EOSINOPHILS 4.3 %; HEMATOCRIT 27.8 % (37.0-47.0); LYMPHOCYTES 12.6 %; MCH 33.7 pg (26.0-34.0); MCHC 32.3 g/dL (28.0-37.0); MCV 104.1 fL (80.0-100.0); MONOCYTES 5.4 %; MPV 8.2 fl. (7.2-11.1); NUCLEATED RBCS 0 /100WBC; PLATELET COUNT* 267 thou/uL (150-400); POLYS 76.8 %; RBC 2.67 mil/uL (4.20-5.00); RDW-CV 18.6 % (10.5-14.5); WBC 6.4 thou/uL (4.0-11.0)
[2020-12-14 09:39] LABS: ALBUMIN 2.7 g/dL (3.4-5.0); CALCIUM 8.9 mg/dL (8.5-10.1); CREATININE 2.2 mg/dL (0.6-1.3); POTASSIUM 4.5 mmol/L (3.5-5.1); TOTAL BILIRUBIN 0.3 mg/dL (<0.1-1.0); TOTAL PROTEIN 5.8 g/dL (6.4-8.2)
--- NOTE | 2020-12-14 11:50 | NUR ---
Continue to work with therapies. Plan ARU tomorrow, will likely need low endurance protocal. Monitor labs.
--- NOTE | 2020-12-14 18:47 | NUR ---
Pt up with walker & max assist X2 to BSC, then up with PT to recliner. Pt c/o pain & weakness to R shoulder; states R/T chronic pain as well as likely strain from "pushing on walker." Hands chronically weak & stiff; diclofenac gel ordered for hands v8m--oax MAR. VSS. Requesting SCDs to be on overnight. Will continue to monitor.
[2020-12-14 21:25] LABS: URINE BILIRUBIN NEGATIVE (Negative); URINE BLOOD NEGATIVE (Negative); URINE CLARITY CLEAR; URINE COLOR YELLOW; URINE GLUCOSE-RANDOM NEGATIVE (Negative); URINE KETONES NEGATIVE (Negative); URINE LEUKOCYTES-REFLEX NEGATIVE (Negative); URINE NITRITE-REFLEX NEGATIVE (Negative); URINE PROTEIN NEGATIVE (Negative); URINE SPECIFIC GRAVITY 1.015 (1.005-1.030); URINE UROBILINOGEN 0.2 E.U./dl (0.2-1.0)
[2020-12-15] VITALS: BP 109/48
[2020-12-15 04:00] VITALS: BP 110/47
--- NOTE | 2020-12-15 06:18 | NUR ---
ASSUMED CARE OF PT AFTER REPORT AT 1930. PT A&OX4. VSS. PHYSICAL ASSESSMENT COMPLETED AND CHARTED. PT ON RA. PT TRACING VPACED ON TELE. PT COMPLAINED RIGHT ANKLE & LEFT GREAT TOE PAIN-MED GIVEN PER MAR. TRIED TO USE BSC BUT UNABLE TO MOVE LEGS/ & BEND KNEES. PT WITH FOOT DROP. DECIDED TO USE BEDPAN FOR SAFETY. UA SPECIMEN SENT TO LAB. TURNED TO SIDES. CALL LIGHT WITHIN REACH.
[2020-12-15 08:30] VITALS: BP 128/62
[2020-12-15 08:54] LABS: ABSOLUTE EOSINOPHILS 0.5 thou/uL (0.0-0.7); ABSOLUTE MONOCYTES 0.7 thou/uL (0.0-1.2); ABSOLUTE NEUTROPHILS 4.1 thou/uL (1.6-8.1); BASOPHILS 0.6 %; EOSINOPHILS 8.5 %; HEMATOCRIT 24.8 % (37.0-47.0); HEMOGLOBIN 8.1 gm/dL (12.0-15.0); LYMPHOCYTES 16.2 %; MCH 33.9 pg (26.0-34.0); MCHC 32.5 g/dL (28.0-37.0); MCV 104.4 fL (80.0-100.0); MONOCYTES 10.2 %; MPV 9.2 fl. (7.2-11.1); NUCLEATED RBCS 0 /100WBC; PLATELET COUNT* 243 thou/uL (150-400); POLYS 64.5 %; RBC 2.38 mil/uL (4.20-5.00); WBC 6.4 thou/uL (4.0-11.0)
[2020-12-15 09:04] LABS: ALBUMIN 2.5 g/dL (3.4-5.0); CALCIUM 8.1 mg/dL (8.5-10.1); CREATININE 2.1 mg/dL (0.6-1.3); POTASSIUM 4.5 mmol/L (3.5-5.1); TOTAL BILIRUBIN 0.2 mg/dL (<0.1-1.0); TOTAL PROTEIN 4.9 g/dL (6.4-8.2)
[2020-12-15 10:35] VITALS: BP 128/62
[2020-12-15] MEDS ORDERED: ASPIRIN325 PO (11:54)
[2020-12-15] MEDS ORDERED: PAIN RELIEVER500 MG PO (11:55)
[2020-12-15] MEDS ORDERED: TRAMADOL 50 MG50 MG PO (11:55)
[2020-12-15] MEDS ORDERED: NORCO7.5 PO (11:55)
[2020-12-15] MEDS ORDERED: PREDNISONE 20 M20 MG PO (11:57)
--- NOTE | 2020-12-15 12:43 | NUR ---
DC today to [facility] pending insurance auth. Family aware.
--- NOTE | 2020-12-15 16:18 | NUR ---
ASSUMED PT CAREA AT 0730.PT IS PLEASANTLY ALERT AND ORIENTED. ASSESSMENAT COMPLETED, PT C/O PAIN TO RIGHT SHOULDER. PAIN PATCH APPLIED. PHYSICIAN IN AND NEW ORDERS TO XRAY R SHOULDER. SHOULDER XRAYED AND INJECTION ADMINISTERED BY PHYSICIAN. MEDICATIONS ADMINISTERED ORDERED. SAFETY MEASURES IN PLACE. PT UP TO BEDSIDE COMMODE WITH MAX ASSIST X2. NEW ORDERS RECIEVED TO TRANSFER PT TO REHAB UNIT. REPORT GIVEN, IV DC'D AND ALL BELONGINGS SENT WITH PT.
== END 2020-12-15 16:15 | DRG 480 ==
LOC: M.PRE 10:41 → M.ORTHSURG 10:43 → M.2W 12-13 06:36
PROVIDERS: ADMIT Internal Medicine; ATTEND Internal Medicine
PROC: 0QH704Z Insertion of Internal Fixation Device into Left Upper Femur, Open Approach (ICD-10-PCS; principal; 2020-12-12)
DX: M80.052A Age-related osteoporosis with current pathological fracture, left femur, initial encounter for fracture (principal); N17.0 Acute kidney failure with tubular necrosis; E44.0 Moderate protein-calorie malnutrition; I13.0 Hypertensive heart and chronic kidney disease with heart failure and stage 1 through stage 4 chronic kidney disease, or unspecified chronic kidney disease; I48.91 Unspecified atrial fibrillation; I73.9 Peripheral vascular disease, unspecified; K52.9 Noninfective gastroenteritis and colitis, unspecified; G25.81 Restless legs syndrome; M10.9 Gout, unspecified; G60.0 Hereditary motor and sensory neuropathy; N18.9 Chronic kidney disease, unspecified; I50.9 Heart failure, unspecified; E87.5 Hyperkalemia; D64.9 Anemia, unspecified; M19.90 Unspecified osteoarthritis, unspecified site; Z88.0 Allergy status to penicillin; Z88.2 Allergy status to sulfonamides; Z88.8 Allergy status to other drugs, medicaments and biological substances; Z95.0 Presence of cardiac pacemaker; Z86.718 Personal history of other venous thrombosis and embolism; Z68.25 Body mass index [BMI] 25.0-25.9, adult

== ENCOUNTER 2020-12-15 15:08 | Inpatient (IN) | payer MEDICARE, MEDICAID ==
[~2020-12-15] VITALS: Ht 165.1 cm; Wt 64.3 kg
[~2020-12-15 15:08] MED LIST changes: +ASPIRIN325 PO; +NORCO7.5 PO; +PAIN RELIEVER500 MG PO; +PREDNISONE 20 M20 MG PO
[2020-12-15 18:37] VITALS: BP 139/64
[2020-12-15 20:00] VITALS: BP 148/54
[2020-12-16 04:56] LABS: ABSOLUTE LYMPHOCYTES 0.6 thou/uL (0.8-5.3); ABSOLUTE NEUTROPHILS 1.6 thou/uL (1.6-8.1); BASOPHILS 0.2 %; EOSINOPHILS 0.1 %; HEMATOCRIT 25.5 % (37.0-47.0); HEMOGLOBIN 8.5 gm/dL (12.0-15.0); LYMPHOCYTES 28.2 %; MCH 34.5 pg (26.0-34.0); MCHC 33.4 g/dL (28.0-37.0); MCV 103.4 fL (80.0-100.0); MONOCYTES 1.2 %; NUCLEATED RBCS 0 /100WBC; PLATELET COUNT* 252 thou/uL (150-400); POLYS 70.3 %; RBC 2.47 mil/uL (4.20-5.00); RDW-CV 18.6 % (10.5-14.5); WBC 2.3 thou/uL (4.0-11.0)
[2020-12-16 05:04] LABS: CALCIUM 9.1 mg/dL (8.5-10.1); CREATININE 1.7 mg/dL (0.6-1.3); POTASSIUM 4.6 mmol/L (3.5-5.1)
[2020-12-16 07:47] VITALS: BP 119/72
[2020-12-16 20:30] VITALS: BP 128/55
[2020-12-17 07:58] VITALS: BP 138/60
[2020-12-17 21:00] VITALS: BP 148/64
[2020-12-18 05:34] LABS: CALCIUM 8.9 mg/dL (8.5-10.1); CREATININE 1.2 mg/dL (0.6-1.3); POTASSIUM 3.8 mmol/L (3.5-5.1)
[2020-12-18 07:59] VITALS: BP 181/70
[2020-12-18 20:00] VITALS: BP 147/67
[2020-12-19 08:00] VITALS: BP 150/61
[2020-12-19 19:00] VITALS: BP 117/57
[2020-12-20 06:02] LABS: ABSOLUTE LYMPHOCYTES 1.7 thou/uL (0.8-5.3); ABSOLUTE MONOCYTES 0.8 thou/uL (0.0-1.2); BASOPHILS 0.1 %; EOSINOPHILS 0.2 %; HEMATOCRIT 29.6 % (37.0-47.0); HEMOGLOBIN 9.6 gm/dL (12.0-15.0); MCH 33.8 pg (26.0-34.0); MCHC 32.5 g/dL (28.0-37.0); MONOCYTES 11.1 %; MPV 8.5 fl. (7.2-11.1); NUCLEATED RBCS 0 /100WBC; PLATELET COUNT* 338 thou/uL (150-400); POLYS 66.6 %; RBC 2.85 mil/uL (4.20-5.00); RDW-CV 18.3 % (10.5-14.5); WBC 7.5 thou/uL (4.0-11.0)
[2020-12-20 06:40] LABS: ALBUMIN 2.6 g/dL (3.4-5.0); CALCIUM 8.5 mg/dL (8.5-10.1); CREATININE 1.3 mg/dL (0.6-1.3); POTASSIUM 4.5 mmol/L (3.5-5.1); TOTAL BILIRUBIN 0.4 mg/dL (<0.1-1.0); TOTAL PROTEIN 5.8 g/dL (6.4-8.2)
[2020-12-20 08:05] VITALS: BP 150/68
[2020-12-20 20:00] VITALS: BP 145/66
[2020-12-21 08:00] VITALS: BP 152/60
[2020-12-21 20:00] VITALS: BP 154/64
[2020-12-22 08:00] VITALS: BP 146/65
[2020-12-22] MEDS ORDERED: VITAMINC500 PO (10:08)
[2020-12-22] MEDS ORDERED: FOLIC ACID1 MG PO (10:08)
[2020-12-22] MEDS ORDERED: VITAMIN B-1100 M1 PO (10:08)
[2020-12-22] MEDS ORDERED: TEMAZEPAM30 MG PO (10:08)
[2020-12-22] MEDS ORDERED: ZOLOFT25 MG PO (10:08)
[2020-12-22 20:09] VITALS: BP 157/68
[2020-12-23 07:53] VITALS: BP 162/64
[2020-12-23 20:00] VITALS: BP 155/71
[2020-12-24 08:23] VITALS: BP 166/83
[2020-12-24 20:00] VITALS: BP 159/67
[2020-12-25 05:13] LABS: HEMATOCRIT 26.9 % (37.0-47.0); HEMOGLOBIN 8.8 gm/dL (12.0-15.0); MCH 34.2 pg (26.0-34.0); MCHC 32.7 g/dL (28.0-37.0); MCV 104.7 fL (80.0-100.0); MPV 8.9 fl. (7.2-11.1); RBC 2.57 mil/uL (4.20-5.00); RDW-CV 18.3 % (10.5-14.5); WBC 8.9 thou/uL (4.0-11.0)
[2020-12-25 05:41] LABS: CALCIUM 8.3 mg/dL (8.5-10.1); CREATININE 1.2 mg/dL (0.6-1.3); MAGNESIUM 2.5 mg/dL (1.8-2.4); POTASSIUM 4.8 mmol/L (3.5-5.1)
[2020-12-25 08:00] VITALS: BP 109/55
[2020-12-25 20:00] VITALS: BP 127/48
[2020-12-26 04:50] LABS: ABSOLUTE LYMPHOCYTES 0.6 thou/uL (0.8-5.3); ABSOLUTE NEUTROPHILS 2.8 thou/uL (1.6-8.1); BASOPHILS 0.3 %; HEMATOCRIT 26.8 % (37.0-47.0); HEMOGLOBIN 8.9 gm/dL (12.0-15.0); LYMPHOCYTES 17.5 %; MCH 34.3 pg (26.0-34.0); MCHC 33.1 g/dL (28.0-37.0); MCV 103.6 fL (80.0-100.0); MONOCYTES 1.4 %; MPV 9.2 fl. (7.2-11.1); NUCLEATED RBCS 0 /100WBC; PLATELET COUNT* 336 thou/uL (150-400); POLYS 80.8 %; RBC 2.58 mil/uL (4.20-5.00); RDW-CV 18.2 % (10.5-14.5); WBC 3.5 thou/uL (4.0-11.0)
[2020-12-26 05:07] LABS: ALBUMIN 2.4 g/dL (3.4-5.0); CALCIUM 8.8 mg/dL (8.5-10.1); CREATININE 1.1 mg/dL (0.6-1.3); POTASSIUM 5.7 mmol/L (3.5-5.1); TOTAL BILIRUBIN 0.3 mg/dL (<0.1-1.0); TOTAL PROTEIN 5.7 g/dL (6.4-8.2)
[2020-12-26 07:34] VITALS: BP 171/62
[2020-12-26 20:00] VITALS: BP 147/53
[2020-12-27 04:29] LABS: HEMOGLOBIN 9.4 gm/dL (12.0-15.0); MCH 33.3 pg (26.0-34.0); MCHC 32.3 g/dL (28.0-37.0); MPV 8.6 fl. (7.2-11.1); NUCLEATED RBCS 0 /100WBC; PLATELET COUNT* 351 thou/uL (150-400); RBC 2.81 mil/uL (4.20-5.00); RDW-CV 18.3 % (10.5-14.5)
[2020-12-27 04:39] LABS: ALBUMIN 2.4 g/dL (3.4-5.0); CALCIUM 8.6 mg/dL (8.5-10.1); CREATININE 1.5 mg/dL (0.6-1.3); POTASSIUM 5.5 mmol/L (3.5-5.1); TOTAL BILIRUBIN 0.5 mg/dL (<0.1-1.0); TOTAL PROTEIN 5.6 g/dL (6.4-8.2)
[2020-12-27 04:49] LABS: WBC 16.1 thou/uL (4.0-11.0)
[2020-12-27 06:13] LABS: ABSOLUTE LYMPHOCYTES 1.4 thou/uL (0.8-5.3); ABSOLUTE NEUTROPHILS 14.7 thou/uL (1.6-8.1); ANISOCYTOSIS 1+; METAMYELOCYTES 1 %; PLATELET ESTIMATE ADEQUATE
[2020-12-27 07:20] VITALS: BP 122/49
[2020-12-27 13:43] LABS: URINE BILIRUBIN NEGATIVE (Negative); URINE BLOOD NEGATIVE (Negative); URINE CLARITY CLEAR; URINE COLOR YELLOW; URINE GLUCOSE-RANDOM NEGATIVE (Negative); URINE KETONES NEGATIVE (Negative); URINE LEUKOCYTES-REFLEX NEGATIVE (Negative); URINE NITRITE-REFLEX NEGATIVE (Negative); URINE PROTEIN NEGATIVE (Negative); URINE SPECIFIC GRAVITY 1.015 (1.005-1.030); URINE UROBILINOGEN 0.2 E.U./dl (0.2-1.0)
[2020-12-27 14:34] VITALS: BP 122/49
== END 2020-12-27 16:20 | disposition short-term general hospital (02) | DRG 963 ==
LOC: M.REH 15:08
PROVIDERS: Internal Medicine; ADMIT Physical Medicine & Rehabilitation; ATTEND Physical Medicine & Rehabilitation
PROC: 3E0U3BZ Introduction of Anesthetic Agent into Joints, Percutaneous Approach (ICD-10-PCS; principal; 2020-12-25)
PROC: 3E0U33Z Introduction of Anti-inflammatory into Joints, Percutaneous Approach (ICD-10-PCS; principal; 2020-12-25)
DX: S72.002A Fracture of unspecified part of neck of left femur, initial encounter for closed fracture (principal); K27.5 Chronic or unspecified peptic ulcer, site unspecified, with perforation; S32.591A Other specified fracture of right pubis, initial encounter for closed fracture; I13.0 Hypertensive heart and chronic kidney disease with heart failure and stage 1 through stage 4 chronic kidney disease, or unspecified chronic kidney disease; G60.0 Hereditary motor and sensory neuropathy; M81.0 Age-related osteoporosis without current pathological fracture; M10.9 Gout, unspecified; N18.9 Chronic kidney disease, unspecified; D53.9 Nutritional anemia, unspecified; M77.8 Other enthesopathies, not elsewhere classified; M75.102 Unspecified rotator cuff tear or rupture of left shoulder, not specified as traumatic; M75.101 Unspecified rotator cuff tear or rupture of right shoulder, not specified as traumatic; I48.91 Unspecified atrial fibrillation; K52.9 Noninfective gastroenteritis and colitis, unspecified; W01.0XXA Fall on same level from slipping, tripping and stumbling without subsequent striking against object, initial encounter; E86.0 Dehydration; E87.5 Hyperkalemia; I50.9 Heart failure, unspecified; Y93.89 Activity, other specified; I73.9 Peripheral vascular disease, unspecified; R10.9 Unspecified abdominal pain; Y92.89 Other specified places as the place of occurrence of the external cause; Y99.8 Other external cause status; Z95.810 Presence of automatic (implantable) cardiac defibrillator; Z88.0 Allergy status to penicillin; Z88.2 Allergy status to sulfonamides; Z91.048 Other nonmedicinal substance allergy status

== ENCOUNTER 2020-12-27 15:05 | Inpatient (IN) | payer MEDICAID ==
[~2020-12-27] VITALS: Ht 152.4 cm; Wt 65.4 kg
--- NOTE | ~2020-12-27 | OP ---
[facility] [address] [place] [address] OPERATIVE REPORT Name: DOMENICO PRASAD Room: [address] IN M.R.#: [id number] Admission: 12/27/20 Attend Phys: Dhiraj Sarmiento Discharge: Date of : [birth year] Report #: [id number] THIS REPORT FOR: cc: Jane Dukes Ahmad W. DO ~ Sergey Villalpando DO DATE OF SERVICE: 12/27/2020 PREOPERATIVE DIAGNOSIS: Perforated viscus. POSTOPERATIVE DIAGNOSIS: Perforated prepyloric ulcer. PROCEDURE: Exploratory laparotomy with repair of prepyloric ulcer and Goyo patch and then also placement of a gastrojejunal feeding tube. SURGEON: Sergey Villalpando MD TORCH SHEARER: Dominic Lewis DO SECOND NETWORK DIRECTOR: Student, Dr. Corona ____ ANOTHER NETWORK DIRECTOR: Suman Malave ANESTHESIA: General endotracheal. ESTIMATED BLOOD LOSS: Less than 20 mL. COMPLICATIONS: None. DESCRIPTION OF PROCEDURE: After obtaining proper consents and discussing risks and complications with the patient and her family, she was taken to the operating room, laid in the supine position, administered general endotracheal anesthetic. She was then prepped and draped in the usual sterile fashion. A timeout was performed. We confirmed the appropriate patient and procedure. Preoperative antibiotics had been given. SCDs were in place. We then made a midline incision supraumbilically. This was carried down through the skin into the subcutaneous tissue using electrocautery for hemostasis. Once the fascia was encountered, it was incised along the midline, grasped and elevated with Tiara clamps. The peritoneum was then bluntly opened using a hemostat. Immediately upon entering the peritoneal cavity, we identified cloudy fluid that had no odor to it. We then extended the peritoneal opening for the entire length of the incision. I then explored the abdomen, we immediately identified some fibrinous exudate around the stomach. I checked the fundus and body of the stomach and found no evidence of any perforation. I continued to look in the area of the pylorus and in the prepyloric region, we found a fairly large 2 [place] [id number] OPERATIVE REPORT Name: DOMENICO PRASAD Room: [address] ADM IN [facility].#: [id number] Admission: 12/27/20 Attend Phys: Dhiraj Sarmiento Discharge: Date of : [birth year] Report #: [id number] or so opening, which was pouring out bilious and cloudy fluid. We immediately began to close this hole to prevent any further leak. I used 2-0 silk sutures with interrupted stitches to close the hole. Once this was done, then we explored the remainder of the abdomen. We also then placed an omental patch over top of this area. I then had talked to the patient's family about placing a gastrojejunostomy tube. We did place this with some difficulty. I opened a small gastrotomy after inserting the tube through the abdominal wall. The gastrojejunal tube had a very flexible jejunal and I did insert this and made numerous attempts to try to pass through the pylorus; however, it kept on turning around and came back up into the body of the stomach. We attempted multiple different trials including using a red rubber catheter to pass through and then to use that to pass the catheter along and this did not work. Finally, I elected to open the stomach, a little bit further in order to use a DeBakey pickup to pass the tube through the pylorus and then out into the duodenum. Once this was done, I then inserted the gastric portion into the stomach. We then used interrupted 2-0 Vicryl sutures to close the approximately 2 cm gastrotomy with a double layer of closure including a Lembert stitch over top of the initial layer. We then blew up the 7 mL balloon inside the stomach. This was then pulled up against the abdominal wall. We then copiously irrigated the abdominal cavity. We placed a 15-Setswana Gabriel-Self drain, right over top of the area where the perforation was. This was sewed in place using a 2-0 nylon suture. The feeding tube was also sewed in place using a 2-0 nylon suture. We then closed the peritoneum and fascia together using a 2-0 PDS using a small bite technique. Once the fascia and peritoneum were closed, we then closed the subcutaneous tissue using 3-0 Vicryl suture. Skin was closed using germaine. The patient was then awakened in the operating room and transported to the Intensive Care Unit in stable, but guarded condition. Sponge, needle and instrument counts were all correct at the end of the procedure. By: [id number] Pierre Villalpando DO /nelson
[~2020-12-27 15:05] MED LIST changes: +FOLIC ACID1 MG PO; +VITAMIN B-1100 M1 PO; +VITAMINC500 PO; +ZOLOFT25 MG PO
[2020-12-27 22:15] LABS: ABSOLUTE LYMPHOCYTES 0.4 thou/uL (0.8-5.3); ABSOLUTE MONOCYTES 0.9 thou/uL (0.0-1.2); ABSOLUTE NEUTROPHILS 16.2 thou/uL (1.6-8.1); BASOPHILS 0.1 %; HEMATOCRIT 30.6 % (37.0-47.0); HEMOGLOBIN 9.6 gm/dL (12.0-15.0); LYMPHOCYTES 2.1 %; MCH 33.2 pg (26.0-34.0); MCHC 31.3 g/dL (28.0-37.0); MCV 106.1 fL (80.0-100.0); MPV 8.7 fl. (7.2-11.1); NUCLEATED RBCS 0 /100WBC; PLATELET COUNT* 333 thou/uL (150-400); POLYS 92.8 %; RBC 2.88 mil/uL (4.20-5.00); RDW-CV 18.9 % (10.5-14.5); WBC 17.4 thou/uL (4.0-11.0)
[2020-12-27 22:25] LABS: ALBUMIN 2.6 g/dL (3.4-5.0); CALCIUM 8.5 mg/dL (8.5-10.1); CREATININE 1.6 mg/dL (0.6-1.3); TOTAL BILIRUBIN 0.4 mg/dL (<0.1-1.0)
[2020-12-28] VITALS (8 sets, daily range): BP systolic 121–160; BP diastolic 47–70
[2020-12-28 08:48] LABS: ABSOLUTE LYMPHOCYTES 0.5 thou/uL (0.8-5.3); ABSOLUTE MONOCYTES 0.7 thou/uL (0.0-1.2); ABSOLUTE NEUTROPHILS 19.1 thou/uL (1.6-8.1); HEMATOCRIT 26.8 % (37.0-47.0); HEMOGLOBIN 8.3 gm/dL (12.0-15.0); LYMPHOCYTES 2.4 %; MCH 32.4 pg (26.0-34.0); MCV 104.6 fL (80.0-100.0); MONOCYTES 3.7 %; MPV 8.6 fl. (7.2-11.1); NUCLEATED RBCS 0 /100WBC; PLATELET COUNT* 316 thou/uL (150-400); POLYS 93.9 %; RBC 2.57 mil/uL (4.20-5.00); RDW-CV 18.5 % (10.5-14.5); WBC 20.3 thou/uL (4.0-11.0)
[2020-12-28 08:55] LABS: CALCIUM 8.2 mg/dL (8.5-10.1); CREATININE 1.6 mg/dL (0.6-1.3); POTASSIUM 5.5 mmol/L (3.5-5.1)
[2020-12-28 08:59] LABS: ALBUMIN 2.1 g/dL (3.4-5.0); TOTAL BILIRUBIN 0.3 mg/dL (<0.1-1.0); TOTAL PROTEIN 5.3 g/dL (6.4-8.2)
[2020-12-29] VITALS: BP 122/50
[2020-12-29 04:00] VITALS: BP 139/63
[2020-12-29 04:29] LABS: ABSOLUTE LYMPHOCYTES 0.5 thou/uL (0.8-5.3); ABSOLUTE MONOCYTES 0.7 thou/uL (0.0-1.2); ABSOLUTE NEUTROPHILS 11.3 thou/uL (1.6-8.1); BASOPHILS 0.1 %; HEMATOCRIT 23.2 % (37.0-47.0); HEMOGLOBIN 7.3 gm/dL (12.0-15.0); LYMPHOCYTES 3.8 %; MCH 32.8 pg (26.0-34.0); MCHC 31.6 g/dL (28.0-37.0); MCV 103.9 fL (80.0-100.0); MONOCYTES 5.3 %; MPV 9.1 fl. (7.2-11.1); NUCLEATED RBCS 0 /100WBC; PLATELET COUNT* 280 thou/uL (150-400); POLYS 90.8 %; RBC 2.23 mil/uL (4.20-5.00); RDW-CV 18.2 % (10.5-14.5); WBC 12.5 thou/uL (4.0-11.0)
[2020-12-29 04:48] LABS: ALBUMIN 1.9 g/dL (3.4-5.0); CALCIUM 8.9 mg/dL (8.5-10.1); CREATININE 1.3 mg/dL (0.6-1.3); MAGNESIUM 2.8 mg/dL (1.8-2.4); PHOSPHORUS* 4.5 mg/dL (2.5-4.9); POTASSIUM 5.2 mmol/L (3.5-5.1); TOTAL BILIRUBIN 0.3 mg/dL (<0.1-1.0); TOTAL PROTEIN 5.1 g/dL (6.4-8.2)
[2020-12-29 08:26] VITALS: BP 138/63
[2020-12-29 11:54] VITALS: BP 136/60
[2020-12-29 16:48] VITALS: BP 146/63
[2020-12-29 20:00] VITALS: BP 127/67
[2020-12-30] VITALS: BP 154/71
[2020-12-30 04:00] VITALS: BP 145/61
[2020-12-30 05:11] LABS: HEMATOCRIT 22.6 % (37.0-47.0); HEMOGLOBIN 7.1 gm/dL (12.0-15.0); MCH 32.6 pg (26.0-34.0); MCHC 31.5 g/dL (28.0-37.0); MCV 103.5 fL (80.0-100.0); RBC 2.18 mil/uL (4.20-5.00); RDW-CV 17.6 % (10.5-14.5); WBC 11.8 thou/uL (4.0-11.0)
[2020-12-30 05:23] LABS: ALBUMIN 1.8 g/dL (3.4-5.0); CALCIUM 8.4 mg/dL (8.5-10.1); CREATININE 1.2 mg/dL (0.6-1.3); POTASSIUM 5.3 mmol/L (3.5-5.1); TOTAL BILIRUBIN 0.3 mg/dL (<0.1-1.0); TOTAL PROTEIN 5.1 g/dL (6.4-8.2)
[2020-12-30 08:00] VITALS: BP 156/61
[2020-12-30 12:00] VITALS: BP 177/71
[2020-12-30 16:00] VITALS: BP 134/89
[2020-12-30 20:00] VITALS: BP 151/64
[2020-12-31] VITALS: BP 160/70
[2020-12-31 04:56] VITALS: BP 171/69
[2020-12-31 07:44] LABS: ABSOLUTE EOSINOPHILS 0.1 thou/uL (0.0-0.7); ABSOLUTE LYMPHOCYTES 0.8 thou/uL (0.8-5.3); ABSOLUTE MONOCYTES 0.7 thou/uL (0.0-1.2); ABSOLUTE NEUTROPHILS 7.9 thou/uL (1.6-8.1); BASOPHILS 0.1 %; EOSINOPHILS 0.8 %; HEMATOCRIT 24.7 % (37.0-47.0); HEMOGLOBIN 7.8 gm/dL (12.0-15.0); LYMPHOCYTES 7.9 %; MCH 32.7 pg (26.0-34.0); MCHC 31.6 g/dL (28.0-37.0); MCV 103.7 fL (80.0-100.0); MONOCYTES 7.7 %; MPV 8.6 fl. (7.2-11.1); NUCLEATED RBCS 0 /100WBC; PLATELET COUNT* 316 thou/uL (150-400); POLYS 83.5 %; RBC 2.38 mil/uL (4.20-5.00); RDW-CV 17.8 % (10.5-14.5); WBC 9.5 thou/uL (4.0-11.0)
[2020-12-31 07:49] LABS: CALCIUM 8.6 mg/dL (8.5-10.1); POTASSIUM 4.9 mmol/L (3.5-5.1)
[2020-12-31 07:54] LABS: CALCIUM 8.6 mg/dL (8.5-10.1); MAGNESIUM 2.4 mg/dL (1.8-2.4); PHOSPHORUS* 2.7 mg/dL (2.5-4.9)
[2020-12-31 08:00] VITALS: BP 157/74
[2020-12-31 12:00] VITALS: BP 174/71
[2020-12-31 16:00] VITALS: BP 154/67
[2020-12-31 20:00] VITALS: BP 159/75
[2021-01-01 00:31] VITALS: BP 173/92
[2021-01-01 04:13] LABS: HEMATOCRIT 21.7 % (37.0-47.0); MCH 32.8 pg (26.0-34.0); MCHC 31.7 g/dL (28.0-37.0); MCV 103.6 fL (80.0-100.0); MPV 8.6 fl. (7.2-11.1); RBC 2.1 mil/uL (4.20-5.00); RDW-CV 17.9 % (10.5-14.5); WBC 6.7 thou/uL (4.0-11.0)
[2021-01-01 04:14] VITALS: BP 133/84
[2021-01-01 04:15] LABS: ALBUMIN 1.8 g/dL (3.4-5.0); CALCIUM 8.3 mg/dL (8.5-10.1); POTASSIUM 4.8 mmol/L (3.5-5.1); TOTAL BILIRUBIN 0.3 mg/dL (<0.1-1.0); TOTAL PROTEIN 4.9 g/dL (6.4-8.2)
[2021-01-01 04:34] LABS: HEMOGLOBIN 6.9 gm/dL (12.0-15.0)
[2021-01-01 12:26] VITALS: BP 149/77
[2021-01-01 12:52] VITALS: BP 149/61; BP 150/60; BP 151/64; BP 155/68; BP 165/65
[2021-01-01 16:29] VITALS: BP 146/63
[2021-01-01 18:04] LABS: HEMATOCRIT 27.8 % (37.0-47.0)
[2021-01-01 18:05] LABS: HEMOGLOBIN 9.1 gm/dL (12.0-15.0)
[2021-01-01 20:00] VITALS: BP 164/67
[2021-01-02] VITALS (7 sets, daily range): BP systolic 139–161; BP diastolic 62–73
[2021-01-02 05:32] LABS: HEMATOCRIT 25.7 % (37.0-47.0); HEMOGLOBIN 8.5 gm/dL (12.0-15.0); MCH 33.4 pg (26.0-34.0); MCHC 33.1 g/dL (28.0-37.0); MCV 100.8 fL (80.0-100.0); RBC 2.55 mil/uL (4.20-5.00); RDW-CV 17.9 % (10.5-14.5); WBC 8.7 thou/uL (4.0-11.0)
[2021-01-02 05:47] LABS: ALBUMIN 1.7 g/dL (3.4-5.0); CALCIUM 8.3 mg/dL (8.5-10.1); CREATININE 0.9 mg/dL (0.6-1.3); POTASSIUM 4.2 mmol/L (3.5-5.1); TOTAL BILIRUBIN 0.3 mg/dL (<0.1-1.0); TOTAL PROTEIN 5.3 g/dL (6.4-8.2)
[2021-01-03 00:33] VITALS: BP 162/67
[2021-01-03 03:44] VITALS: BP 162/71
[2021-01-03 04:19] LABS: HEMATOCRIT 28.7 % (37.0-47.0); HEMOGLOBIN 9.2 gm/dL (12.0-15.0); MCH 32.7 pg (26.0-34.0); MCV 102.1 fL (80.0-100.0); MPV 8.6 fl. (7.2-11.1); RBC 2.81 mil/uL (4.20-5.00); RDW-CV 17.6 % (10.5-14.5); WBC 6.7 thou/uL (4.0-11.0)
[2021-01-03 04:46] LABS: ALBUMIN 1.8 g/dL (3.4-5.0); CALCIUM 8.3 mg/dL (8.5-10.1); CREATININE 0.7 mg/dL (0.6-1.3); TOTAL BILIRUBIN 0.3 mg/dL (<0.1-1.0)
[2021-01-03 08:00] VITALS: BP 159/71
[2021-01-03 13:34] VITALS: BP 170/77
[2021-01-03 20:00] VITALS: BP 153/72
[2021-01-04] VITALS (8 sets, daily range): BP systolic 124–179; BP diastolic 63–84
[2021-01-04 04:22] LABS: HEMATOCRIT 28.5 % (37.0-47.0); HEMOGLOBIN 9.1 gm/dL (12.0-15.0); MCH 32.1 pg (26.0-34.0); MCV 100.3 fL (80.0-100.0); MPV 8.9 fl. (7.2-11.1); RBC 2.84 mil/uL (4.20-5.00); RDW-CV 17.9 % (10.5-14.5); WBC 6.5 thou/uL (4.0-11.0)
[2021-01-04 04:53] LABS: ALBUMIN 1.7 g/dL (3.4-5.0); CALCIUM 8.9 mg/dL (8.5-10.1); CREATININE 0.9 mg/dL (0.6-1.3); POTASSIUM 3.8 mmol/L (3.5-5.1); TOTAL BILIRUBIN 0.3 mg/dL (<0.1-1.0)
[2021-01-05 04:00] VITALS: BP 149/72
[2021-01-05 07:36] LABS: HEMATOCRIT 30.3 % (37.0-47.0); HEMOGLOBIN 9.6 gm/dL (12.0-15.0); MCH 31.6 pg (26.0-34.0); MCHC 31.8 g/dL (28.0-37.0); MCV 99.3 fL (80.0-100.0); RBC 3.05 mil/uL (4.20-5.00); RDW-CV 17.6 % (10.5-14.5); WBC 7.5 thou/uL (4.0-11.0)
[2021-01-05 07:59] LABS: ALBUMIN 1.8 g/dL (3.4-5.0); CALCIUM 8.1 mg/dL (8.5-10.1); CREATININE 1.1 mg/dL (0.6-1.3); POTASSIUM 3.7 mmol/L (3.5-5.1); TOTAL BILIRUBIN 0.3 mg/dL (<0.1-1.0)
[2021-01-05 08:00] VITALS: BP 155/60
[2021-01-05 12:26] VITALS: BP 140/65
[2021-01-05 16:00] VITALS: BP 154/65
[2021-01-05 20:00] VITALS: BP 138/58
[2021-01-06 00:31] VITALS: BP 121/55
[2021-01-06 03:43] VITALS: BP 135/58; BP 146/64
[2021-01-06 09:10] VITALS: BP 157/66
[2021-01-06 11:35] VITALS: BP 127/55
[2021-01-06 16:12] VITALS: BP 144/67
[2021-01-06 21:00] VITALS: BP 139/63
[2021-01-07 00:14] VITALS: BP 129/57
[2021-01-07 03:47] LABS: HEMATOCRIT 29.8 % (37.0-47.0); MCH 32.7 pg (26.0-34.0); MCHC 33.4 g/dL (28.0-37.0); MCV 97.9 fL (80.0-100.0); RBC 3.05 mil/uL (4.20-5.00); RDW-CV 17.4 % (10.5-14.5); WBC 6.3 thou/uL (4.0-11.0)
[2021-01-07 04:22] LABS: CALCIUM 7.6 mg/dL (8.5-10.1); CREATININE 1.1 mg/dL (0.6-1.3); POTASSIUM 3.7 mmol/L (3.5-5.1)
[2021-01-07 05:16] VITALS: BP 144/61
[2021-01-07 09:00] VITALS: BP 147/62
[2021-01-07 12:52] VITALS: BP 148/60
[2021-01-07 17:26] VITALS: BP 94/51
[2021-01-07 20:00] VITALS: BP 113/59
[2021-01-08] VITALS (7 sets, daily range): BP systolic 122–155; BP diastolic 58–68
[2021-01-08 04:18] LABS: HEMATOCRIT 30.2 % (37.0-47.0); HEMOGLOBIN 9.7 gm/dL (12.0-15.0); MCH 31.7 pg (26.0-34.0); MCHC 32.3 g/dL (28.0-37.0); MCV 98.1 fL (80.0-100.0); MPV 8.9 fl. (7.2-11.1); RBC 3.07 mil/uL (4.20-5.00); RDW-CV 17.6 % (10.5-14.5); WBC 5.1 thou/uL (4.0-11.0)
[2021-01-08 04:35] LABS: CALCIUM 7.8 mg/dL (8.5-10.1); CREATININE 1.1 mg/dL (0.6-1.3); POTASSIUM 3.4 mmol/L (3.5-5.1)
[2021-01-09 04:00] VITALS: BP 127/53
[2021-01-09 04:48] LABS: CALCIUM 8.8 mg/dL (8.5-10.1); CREATININE 1.1 mg/dL (0.6-1.3)
[2021-01-09 04:51] LABS: HEMATOCRIT 30.7 % (37.0-47.0); HEMOGLOBIN 10.1 gm/dL (12.0-15.0); MCH 32.2 pg (26.0-34.0); MCHC 32.9 g/dL (28.0-37.0); MCV 97.9 fL (80.0-100.0); RBC 3.13 mil/uL (4.20-5.00); RDW-CV 17.6 % (10.5-14.5); WBC 5.3 thou/uL (4.0-11.0)
[2021-01-09 07:30] VITALS: BP 141/62
[2021-01-09 12:17] VITALS: BP 147/64
[2021-01-09 15:30] VITALS: BP 130/54
[2021-01-09 20:10] VITALS: BP 153/68
[2021-01-10 00:27] VITALS: BP 132/87
[2021-01-10 04:26] LABS: HEMATOCRIT 31.5 % (37.0-47.0); HEMOGLOBIN 10.2 gm/dL (12.0-15.0); MCH 31.4 pg (26.0-34.0); MCHC 32.4 g/dL (28.0-37.0); MCV 96.9 fL (80.0-100.0); MPV 8.6 fl. (7.2-11.1); RBC 3.26 mil/uL (4.20-5.00); RDW-CV 17.1 % (10.5-14.5); WBC 5.3 thou/uL (4.0-11.0)
[2021-01-10 04:37] LABS: CALCIUM 8.2 mg/dL (8.5-10.1)
[2021-01-10 05:00] VITALS: BP 136/64
[2021-01-10 08:42] VITALS: BP 151/63
[2021-01-10] MEDS ORDERED: COLACE 100 MG100 MG PO (09:47)
[2021-01-10] MEDS ORDERED: HEPARIN SO5000 UNIT/ SUBQ (09:47)
[2021-01-10] MEDS ORDERED: METAMUCIL PACK3.4 GM PO (09:47)
[2021-01-10] MEDS ORDERED: ZINC SULFATE50 MG PO (09:47)
[2021-01-10] MEDS ORDERED: MEGESTROL400 MG/11 PO (11:42)
== END 2021-01-10 18:13 | DRG 853 ==
LOC: M.2W 15:05 → M.ICU 16:21 → M.TBA 16:21 → M.2W 16:21 → M.ICU 19:41 → M.2W 12-28 15:04
PROVIDERS: Family Medicine; Pediatrics; Surgery; ADMIT Internal Medicine; ATTEND Internal Medicine
PROC: 3E0T3BZ Introduction of Anesthetic Agent into Peripheral Nerves and Plexi, Percutaneous Approach (ICD-10-PCS; 2020-12-27)
PROC: 0DU707Z Supplement Stomach, Pylorus with Autologous Tissue Substitute, Open Approach (ICD-10-PCS; 2020-12-27)
PROC: 0DHA0UZ Insertion of Feeding Device into Jejunum, Open Approach (ICD-10-PCS; 2020-12-27)
PROC: 05HY33Z Insertion of Infusion Device into Upper Vein, Percutaneous Approach (ICD-10-PCS; 2020-12-29)
PROC: B54NZZA Ultrasonography of Left Upper Extremity Veins, Guidance (ICD-10-PCS; 2020-12-29)
PROC: 30233N1 Transfusion of Nonautologous Red Blood Cells into Peripheral Vein, Percutaneous Approach (ICD-10-PCS; principal; 2021-01-01)
DX: A41.9 Sepsis, unspecified organism (principal); E43 Unspecified severe protein-calorie malnutrition; K25.1 Acute gastric ulcer with perforation; N17.9 Acute kidney failure, unspecified; K94.23 Gastrostomy malfunction; I13.0 Hypertensive heart and chronic kidney disease with heart failure and stage 1 through stage 4 chronic kidney disease, or unspecified chronic kidney disease; I50.42 Chronic combined systolic (congestive) and diastolic (congestive) heart failure; N18.30 Chronic kidney disease, stage 3 unspecified; I48.91 Unspecified atrial fibrillation; M10.9 Gout, unspecified; M19.90 Unspecified osteoarthritis, unspecified site; E86.0 Dehydration; K59.00 Constipation, unspecified; D53.9 Nutritional anemia, unspecified; G60.0 Hereditary motor and sensory neuropathy; K52.9 Noninfective gastroenteritis and colitis, unspecified; M21.372 Foot drop, left foot; M21.371 Foot drop, right foot; I73.9 Peripheral vascular disease, unspecified; G25.81 Restless legs syndrome; E87.6 Hypokalemia; Z86.718 Personal history of other venous thrombosis and embolism; Z95.810 Presence of automatic (implantable) cardiac defibrillator; Z88.8 Allergy status to other drugs, medicaments and biological substances; Z88.2 Allergy status to sulfonamides; Z88.0 Allergy status to penicillin; Z68.28 Body mass index [BMI] 28.0-28.9, adult; Y84.8 Other medical procedures as the cause of abnormal reaction of the patient, or of later complication, without mention of misadventure at the time of the procedure; Y73.8 Miscellaneous gastroenterology and urology devices associated with adverse incidents, not elsewhere classified